=== PATIENT | female | born 1960 | race Caucasian/White ===

== ENCOUNTER → 2016-11-18 | Outpatient (CLI) | payer OTHER ==
[~2016-11-18] MED LIST: CITA40TA4 PO; LISI10TA PO; METF500T5 PO; OMEP20TA14 PO; SIMV20TA2 PO
[2016-11-18 15:45] LABS: ALT/SGPT 33 U/L (12-78); BLOOD UREA NITROGEN 14 mg/dl (7-18); BUN/CREATININE RATIO 14.5 (10-20); CARBON DIOXIDE 28 mmol/L (21-32); CHLORIDE 104 mmol/L (98-107); CREATININE 0.95 mg/dl (0.60-1.20); GLUCOSE 101 mg/dl (70-99); POTASSIUM 4.2 mmol/L (3.5-5.1); SODIUM 139 mmol/L (136-145)
[2016-11-18 15:56] LABS: ALB/GLOB RATIO 0.9 (0.9-2); ALKALINE PHOSPHATASE 72 U/L (45-117); AST/SGOT 19 U/L (15-37)
[2016-11-19 05:47] LABS: ESTIMATED AVERAGE GLUCOSE 120 mg/dl; HA1C FLAG Normal (Normal)
== END | disposition home or self-care (01) ==
LOC: C.LABBC 10:02
PROVIDERS: ATTEND Family Medicine
DX: E11.9 Type 2 diabetes mellitus without complications (principal); I10 Essential (primary) hypertension; G62.9 Polyneuropathy, unspecified

== ENCOUNTER 2017-08-04 08:27 | Day surgery (SDC) | payer OTHER ==
[2017-08-01 14:30] VITALS: BMI 45.0
[~2017-08-04] VITALS: Ht 162.6 cm; Wt 120.5 kg
[~2017-08-04 08:27] MED LIST changes: +CEFAZOLIN 2000MG IV PUSH 10 ML IV SCH; +LACTATED RINGER'S 1000ML 1,000 ML IV SCH
[2017-08-04 09:01] VITALS: BP 144/82; PULSE 83; TEMP 36.4; O2SAT 97; Ht 162.6 cm; Wt 120.5 kg
--- NOTE | 2017-08-04 10:17 | History & Physical Bridge Note ---
H&P Re-Evaluation Bridge Note: I have examined the patient, reviewed the History & Physical and in the interval since the performance of the History & Physical I have noted the following changes of clinical significance: No changes noted
[2017-08-04] MEDS ORDERED: BACITRACIN OINT 15 GM TUBE ONE (12:05)
[2017-08-04] MEDS ORDERED: LIDOCAINE HCL 1% 20 ML VIAL ONE (12:05)
[2017-08-04] MEDS ORDERED: BUPIVACAINE 0.5 % 5 MG/1 ML MPF 30ML VIAL ONE (12:05)
[2017-08-04] MEDS ORDERED: FENTANYL CITRATE INJ 50 MCG/1 ML 2 ML VIAL ONE (12:10)
[2017-08-04] MEDS ORDERED: PROPOFOL IV EMULSION 10 MG/ML 20 ML VIAL IV ONE ×2 (12:10→12:33)
[2017-08-04] MEDS ORDERED: MIDAZOLAM HCL 1 MG/ML 2ML VIAL ONE (12:10)
[2017-08-04] MEDS ORDERED: ONDANSETRON INJ 2 MG/ML 2 ML VIAL ONE (12:34)
[2017-08-04] MEDS ORDERED: PROMETHAZINE HCL INJ 6.25 MG in SODIUM CHLORIDE 0.9% 50ML 50 ML IV PRN (13:30)
[2017-08-04] MEDS ORDERED: ONDANSETRON INJ 2 MG/ML 2 ML VIAL IV PRN (13:30)
[2017-08-04] MEDS ORDERED: EpHEDrine SULFATE INJ 50 MG/ML AMP IV PRN (13:30)
[2017-08-04] MEDS ORDERED: FENTANYL CITRATE INJ 50 MCG/1 ML 2 ML VIAL IV PRN (13:30)
[2017-08-04] MEDS ORDERED: ATROPINE SULFATE 0.1 MG/ML 5ML SYR IV PRN (13:30)
[2017-08-04] MEDS ORDERED: OXYC-57 PO (14:12)
--- NOTE | 2017-08-04 14:14 | Discharge Instructions ---
Discharge Instructions Date of Service Aug 04, 2017. Visit Reason for Visit: Left Breast Cancer Discharge Discharge Diagnosis / Problem: S/P port insertion on right sublavein vein Discharge Goals Goal(s): Decrease discomfort, Improve function Activity Recommendations Activity Limitations: per Instructions/Follow-up section Lifting Limitations: no more than 10 pounds Exercise/Sports Limitations: rest today May Resume Sexual Activity: when tolerated Shower/Bathe: may shower/bathe in 3 days Driving or Machine Use: resume 3 days after discharge Anesthesia . Post Anesthesia Instructions: If you have had General Anesthesia or IV Sedation: * Do not drive today. * Resume driving when surgeon permits. * Do not make important decisions or sign legal documents today. * Call surgeon for: 1. Temperature elevations greater than 101 degrees F. 2. Uncontrollable pain. 3. Excessive bleeding. 4. Persistent nausea and vomiting. 5. Medication intolerance (nausea, vomiting or rash). * For nausea and vomiting use only clear liquids such as: tea, soda, bouillon until nausea subsides, then gradually increase diet as tolerated. * If you have any concerns or questions, call your surgeon's office. If physician is unavailable and it is an emergency, call 911 or go to the nearest emergency room. . Instructions / Follow-Up Instructions / Follow-Up keep the dressing on for 4 days, she can take a shower on 08/08/17, no driving while taking pain medicine, follow up 1 week, Diet Recommendations Recommended Home Diet: resume previous diet Procedures Procedures Performed: A-Port Insertion Pending Studies Studies pending at discharge: no Medical Emergencies . Who to Call and When: Medical Emergencies: If at any time you feel your situation is an emergency, please call 911 immediately. . Non-Emergent Contact Non-Emergency issues call your: Surgeon Call Non-Emergent contact if: you have a fever, temperature is above 100.5, your pain is not controlled, your pain is worsening, wound has increased drainage, wound has increased redness . . "Provider Documentation" section prepared by Thad England. . [place] Drug Monitoring Program Search Results: no issues identified
[2017-08-04] MEDS ORDERED: OXYCODONE/ACETAMINOPHEN 5-325 TAB PO PRN (14:15)
[2017-08-04] MEDS ORDERED: MoRPHine SULFATE 2 MG/ML CARP IV PRN (14:15)
--- NOTE | 2017-08-04 14:17 | Anesthesiology Progress Note ---
Anesthesia Post Op Note Date & Time Aug 04, 2017 at 14:16 Vital Signs Pain Intensity: 0 Vital Signs Past 12 Hours Date Time Temp Pulse Resp B/P (MAP) Pulse Ox O2 Delivery O2 Flow Rate FiO2 08/04/17 14:05 78 16 110/83 95 Room Air 08/04/17 13:55 80 20 124/65 96 Room Air 08/04/17 13:46 36.1 77 16 138/82 97 Room Air 08/04/17 09:01 36.4 83 20 144/82 (102) 97 Room Air Notes Mental Status: alert / awake / arousable, participated in evaluation Pt Amnestic to Procedure: No Nausea / Vomiting: adequately controlled Pain: adequately controlled Airway Patency, RR, SpO2: stable & adequate BP & HR: stable & adequate Hydration State: stable & adequate Anesthetic Complications: no major complications apparent Non distressing recall as discussed preop
--- NOTE | 2017-08-04 14:17 | [facility] Post Operative Brief Note ---
Immediate Operative Summary Operative Date Aug 04, 2017. Pre-Operative Diagnosis breast cancer Post-Operative Diagnosis breast cancer Procedure(s) Performed A-Port Insertion on right sublavein vein Surgeon Dr. England Dermatologist Surgeon(s) surgical sales representative Estimated Blood Loss 10ml Findings patent SVC Fluids (cc crystalloids) 500ml Specimens none per surgeon Drains none Anesthesia sedation + local Complication(s) None Disposition Recovery Room / PACU
[2017-08-04 14:28] VITALS: BP 125/87; PULSE 75; TEMP 36.6; O2SAT 96
--- NOTE | 2017-08-04 14:45 | DIAGNOSTIC IMAGING REPORT ---
CHEST ONE VIEW PORTABLE HISTORY: 57 years-old Female s/p aport insertion status post right-sided [id number]-[id number] catheter placement COMPARISON: Chest radiograph 09/15/2016 TECHNIQUE: AP view of the chest FINDINGS: Cardiac silhouette is mildly enlarged, unchanged. Status post placement of a right subclavian Loexuy-b-Lgem catheter with distal tip terminating in the region of the SVC. No postprocedural pneumothorax identified. No pleural effusion. Mild right hemidiaphragmatic elevation. No focal airspace consolidation or overt pulmonary edema. The bones of the chest appear grossly intact. IMPRESSION: Status post placement of a right subclavian Hujulx-g-Nqwi catheter with distal tip terminating in the region of the SVC. No postprocedural pneumothorax identified. The above report was generated using voice recognition software. It may contain grammatical, syntax or spelling errors. Electronically signed by: Jace Carrillo M.D. 08/04/2017 2:43 PM Dictated Date/Time: 08/04/2017 2:42 PM
[2017-08-04 14:54] VITALS: BP 123/59; PULSE 84; TEMP 36.8; O2SAT 95
[2017-08-04] MEDS ORDERED: SODIUM CHLORIDE 0.9% 1000ML 1,000 ML IV SCH (15:00)
--- NOTE | 2017-08-04 19:42 | OPERATIVE REPORT ---
DATE OF OPERATION: 08/04/2017 PREOPERATIVE DIAGNOSIS: Breast cancer, need of port insertion for chemotherapy. POSTOPERATIVE DIAGNOSIS: Same. PROCEDURE: Insertion of port right subclavian vein. SURGEON: Thad England MD. ANESTHESIA: Conscious sedation plus local. ESTIMATED BLOOD LOSS: About 10 mL. FINDINGS: patent SVC. COMPLICATIONS: None. INDICATIONS FOR PROCEDURE: This is a 57-year-old female who was diagnosed with breast cancer and need port insertion for chemo. We did talk to the patient about the benefit, risk, alternate procedure. I indicated the risks may include but not limited such as bleeding, infection, injury vessel, injury to bowel, dysfunction of catheter, blood clot. The patient understands. She signed informed consent and I answered all questions. DETAILS OF PROCEDURE: We brought the patient to the OR, put the patient in the supine position. The patient received SCD on bilateral legs to prevent DVT and also patient received 2 grams Ancef IV for prophylactic antibiotic. The patient received conscious sedation by the anesthesiology. First we tried the right side of the neck. We tried to locate the right internal jugular venin, because the patient has a very short neck and the patient also has significant obesity, it was difficult to locate the right internal jugular vein. Now we moved onto the right upper chest. We used a local injection of 1% lidocaine mixed with 0.5% Marcaine around the right upper chest, then I used a 15-gauge needle to puncture to region of right subclavian vein easily and passed the wire in and then I made about 3 cm incision around the wire and created a port. Hemostasis was obtained. Then I used the dilator catheter to pass the wire in. At this moment, we used fluoro to monitor the wire and located it in the right atrium. Then we removed the wire and we used dilation and at this moment, we passed the port of catheter through the dilation sheath and then we removed the sheath and we used fluoro again to confirm the port tip and locate the junction between the right atrium towards the superior vena cava. Then we connected the port to the catheter and hemostasis obtained. Then I used 2-0 Prolene to affix the port on the chest wall at 3 o'clock, 7 o'clock, 12 o'clock and then used 2-0 Vicryl to close subcutaneous layer continuous running, 4-0 Vicryl to close the skin continuous running and then I used chemoradiation needle to puncture the port from outside skin, easily blood returned, I injected normal saline with heparin. Then, we put the dressing on. The patient tolerated the procedure well. All instrument, needle and sponge count correct x2 at the end of case. The patient transferred to recovery room in stable condition. After the procedure, I did talk to the patient's family member about the OR finding and procedure we did, they understand. Also, gave them the postop care instructions. I attest to the content of the Intraoperative Record and any orders documented therein. Any exceptions are noted below. KIMD
[2017-08-05] MEDS ORDERED: CEFAZOLIN SOD 2000MG/10 ML IV PUSH IV ONE (06:00)
== END 2017-08-04 15:05 | disposition home or self-care (01) ==
LOC: C.ACU 08:27
PROVIDERS: ATTEND Surgery
DX: Z85.3 Personal history of malignant neoplasm of breast (principal); I10 Essential (primary) hypertension; E78.5 Hyperlipidemia, unspecified; L71.9 Rosacea, unspecified; K21.9 Gastro-esophageal reflux disease without esophagitis; F32.1 Major depressive disorder, single episode, moderate; E11.9 Type 2 diabetes mellitus without complications; Z90.49 Acquired absence of other specified parts of digestive tract; Z90.711 Acquired absence of uterus with remaining cervical stump; Z90.12 Acquired absence of left breast and nipple; Z82.49 Family history of ischemic heart disease and other diseases of the circulatory system; Z79.84 Long term (current) use of oral hypoglycemic drugs; E66.9 Obesity, unspecified; Z68.41 Body mass index [BMI] 40.0-44.9, adult

== ENCOUNTER 2025-02-14 08:52 | Inpatient (IN) ==
--- NOTE | 2025-02-14 09:21 | Emergency Department Note ---
History of Present Illness General Chief complaint: Tachycardia Stated complaint: HEART ISSUES FAST HEARTBEAT,DOC REFF Time Seen by Provider: 02/14/25 09:06 History of Present Illness Maximum Pain Intensity: 5 This is a 64-year-old female with a history of breast cancer, diabetes, hypertension that presents to the emergency department via private vehicle with complaints of "referred by doctor, elevated heart rate". The patient notes about 1 week ago she thought perhaps she had a "cold" noting shortness of breath. She notes that throughout the week this has continued and at rest is essentially asymptomatic but if she attempts to walk any short distances she becomes quite dyspneic. She also notes that when she lays flat she experiences some wheezing. She denies any history of similar. She had a follow-up today for her diabetes management and was referred in by PCP noting tachycardia and dyspnea. The patient denies any chest pain or heaviness. The patient denies any preceding or current infectious symptoms otherwise. No fevers or chills. No nausea or vomiting. She does note that her parents have a cardiac history, which began in their 60s. Home Medications Medication Instructions Recorded Confirmed Type omeprazole 20 mg capsule,delayed 20 mg PO QAM #0 tabs 07/17/16 02/14/25 History release lisinopril 10 mg tablet 10 mg PO HS 04/13/19 02/14/25 History venlafaxine 150 mg tablet,extended 150 mg PO HS 04/13/19 02/14/25 History release 24 hr atorvastatin 20 mg tablet 20 mg PO HS 03/02/20 02/14/25 History metformin 500 mg tablet,extended 1,500 mg PO QAM 02/14/25 02/14/25 History release 24 hr pioglitazone 15 mg tablet 15 mg PO QAM 02/14/25 02/14/25 History Allergies Allergy/AdvReac Type Severity Reaction Status Date / Time codeine AdvReac Mild NAUSEA/VOMI Verified 02/14/25 12:47 TING Past Med/Surg History Problem List Dyspnea on exertion (Acute) Heart failure (Acute) Dyslipidemia, goal LDL below 70 HTN (hypertension) Heart failure, systolic, with acute decompensation Mitral regurgitation Systolic congestive heart failure with reduced left ventricular function, NYHA class 3 UTI (urinary tract infection) (Acute) Pleural effusion (Acute) Tachycardia (Acute) Cancer of left breast, stage 2 (Chronic 05/22/17) Encounter for pre-operative examination Polyp of duodenum History of hysterectomy History of cholecystectomy Medical History (Updated 02/14/25 @ 20:34 by Taran Gomez PA-C) Anxiety and depression History of colon polyps Osteoarthritis Hyperlipidemia HTN (hypertension), benign Pre-diabetes History of breast cancer left--diagnosed 2017--chemo/radiation/sx Surgical History History of anesthesia reaction EGD 04/22/19 [facility] - GAG/COUGH, LOW O2 SAT DURING PROCEDURE. PROCEDURE TERMINATED. History of carpal tunnel surgery of right wrist History of arthroscopy of right knee History of colonoscopy History of esophagogastroduodenoscopy (EGD) History of left breast biopsy malignant History of lumpectomy of left breast History of wisdom tooth extraction Family History Father Family history of esophageal cancer Other No family history of adverse response to anesthesia Social History Smoking Status: Never smoker Second Hand Exposure: No; Do You Dip or Chew Tobacco: No; Hx Alcohol Use: Yes Alcohol type: beer Hx Substance Use: No Preferred Language: Kazakh Communication Ability: Effective Financial Reporting Director Required: No Beliefs That Will Affect Care: None Current Living Situation: Alone Other Information That Helps Us Care for You: No Feels Safe at Home: Yes Safety Concerns: Feels Safe At This Time Assistive Devices: None Review of Systems A total of 10 systems reviewed and were otherwise negative Physical Exam Vital Signs Vital Signs - 24 hr 02/14/25 08:57 02/14/25 09:12 02/14/25 09:14 Temperature 36.7 C Temperature Source Oral Pulse Rate 122 H 117 H 118 H Pulse Rate [Apical] Respiratory Rate 26 H 25 H Respiratory Effort / Characteristics Respiratory Depth Blood Pressure 146/80 H Blood Pressure [Right Arm] Blood Pressure Mean 102 Blood Pressure Mean [Right Arm] Blood Pressure Position Sitting Pulse Oximetry 97 Oxygen Delivery Method Room Air Sepsis Recent Fever Within 48 Hours No Sepsis New/Unexplained Change in Mental Status No Sepsis Action Taken by Nursing No Action Required 02/14/25 09:14 02/14/25 09:14 02/14/25 09:14 Temperature Temperature Source Pulse Rate Pulse Rate [Apical] Respiratory Rate Respiratory Effort / Characteristics Respiratory Depth Blood Pressure 136/85 136/85 136/85 Blood Pressure [Right Arm] Blood Pressure Mean 100 100 100 Blood Pressure Mean [Right Arm] Blood Pressure Position Pulse Oximetry Oxygen Delivery Method Sepsis Recent Fever Within 48 Hours Sepsis New/Unexplained Change in Mental Status Sepsis Action Taken by Nursing 02/14/25 09:17 02/14/25 09:20 02/14/25 09:27 Temperature Temperature Source Pulse Rate 114 H Pulse Rate [Apical] Respiratory Rate 21 Respiratory Effort / Characteristics Respiratory Depth Blood Pressure Blood Pressure [Right Arm] Blood Pressure Mean Blood Pressure Mean [Right Arm] Blood Pressure Position Pulse Oximetry 97 97 Oxygen Delivery Method Room Air Room Air Sepsis Recent Fever Within 48 Hours Sepsis New/Unexplained Change in Mental Status Sepsis Action Taken by Nursing 02/14/25 09:30 02/14/25 09:53 02/14/25 09:53 Temperature Temperature Source Pulse Rate 112 H Pulse Rate [Apical] Respiratory Rate 15 Respiratory Effort / Characteristics Respiratory Depth Blood Pressure 129/78 129/78 Blood Pressure [Right Arm] Blood Pressure Mean 92 92 Blood Pressure Mean [Right Arm] Blood Pressure Position Pulse Oximetry Oxygen Delivery Method Sepsis Recent Fever Within 48 Hours Sepsis New/Unexplained Change in Mental Status Sepsis Action Taken by Nursing 02/14/25 09:54 02/14/25 10:00 02/14/25 10:00 Temperature Temperature Source Pulse Rate 112 H Pulse Rate [Apical] Respiratory Rate 17 Respiratory Effort / Characteristics Respiratory Depth Blood Pressure 135/80 135/80 Blood Pressure [Right Arm] Blood Pressure Mean 89 89 Blood Pressure Mean [Right Arm] Blood Pressure Position Pulse Oximetry 97 Oxygen Delivery Method Sepsis Recent Fever Within 48 Hours Sepsis New/Unexplained Change in Mental Status Sepsis Action Taken by Nursing 02/14/25 10:06 02/14/25 10:12 02/14/25 10:30 Temperature Temperature Source Pulse Rate 108 H 108 H Pulse Rate [Apical] Respiratory Rate 21 19 Respiratory Effort / Characteristics Respiratory Depth Blood Pressure 146/90 H Blood Pressure [Right Arm] Blood Pressure Mean 106 Blood Pressure Mean [Right Arm] Blood Pressure Position Pulse Oximetry 96 Oxygen Delivery Method Sepsis Recent Fever Within 48 Hours Sepsis New/Unexplained Change in Mental Status Sepsis Action Taken by Nursing 02/14/25 10:39 02/14/25 10:42 02/14/25 10:54 Temperature Temperature Source Pulse Rate 115 H 117 H 108 H Pulse Rate [Apical] Respiratory Rate 24 19 19 Respiratory Effort / Characteristics Respiratory Depth Blood Pressure Blood Pressure [Right Arm] Blood Pressure Mean Blood Pressure Mean [Right Arm] Blood Pressure Position Pulse Oximetry 98 98 98 Oxygen Delivery Method Sepsis Recent Fever Within 48 Hours Sepsis New/Unexplained Change in Mental Status Sepsis Action Taken by Nursing 02/14/25 10:57 02/14/25 11:00 02/14/25 11:09 Temperature Temperature Source Pulse Rate 110 H 109 H Pulse Rate [Apical] Respiratory Rate 20 Respiratory Effort / Characteristics Respiratory Depth Blood Pressure 144/90 H Blood Pressure [Right Arm] Blood Pressure Mean 111 Blood Pressure Mean [Right Arm] Blood Pressure Position Pulse Oximetry 98 Oxygen Delivery Method Sepsis Recent Fever Within 48 Hours Sepsis New/Unexplained Change in Mental Status Sepsis Action Taken by Nursing 02/14/25 12:00 Temperature Temperature Source Pulse Rate Pulse Rate [Apical] 117 H Respiratory Rate 18 Respiratory Effort / Characteristics Non-Labored Spontaneous Respiratory Depth Normal Blood Pressure Blood Pressure [Right Arm] 134/102 H Blood Pressure Mean Blood Pressure Mean [Right Arm] 112 Blood Pressure Position Pulse Oximetry 98 Oxygen Delivery Method Room Air Sepsis Recent Fever Within 48 Hours Sepsis New/Unexplained Change in Mental Status Sepsis Action Taken by Nursing VITAL SIGNS - Vital signs and nursing notes were reviewed. Tachypneic, tachycardic, otherwise stable and afebrile. GENERAL -64-year-old female appearing her stated age who is in no acute distress. Communicates well with provider and answers questions appropriately. SKIN - Without rashes. No meningeal or petechial rash. HEAD - NC/AT. EYES - PERRL with EOMI bilaterally. Sclera anicteric. EARS - No deformities of external structures noted on gross examination bilaterally. NOSE - Midline and without cyanosis. No epistaxis or purulent drainage noted. MOUTH/OROPHARYNX - Without perioral cyanosis. NECK - Neck with FROM. No nuchal rigidity. LUNGS - CTA CARDIAC - tachycardic, no definite murmur ABDOMEN - Abdominal contour normal without pulsations or visible masses. BS normoactive all four quadrants. No tenderness, palpable masses, hepatosplenomegaly, or ascites noted. EXTREMITIES - No clubbing or peripheral cyanosis. +5/5 strength noted in UE/LE bilaterally. NEUROLOGIC - Cranial nerves II through XII grossly intact. PSYCH - Alert, oriented and pleasant on exam. Course Administered Medications Atorvastatin Calcium (Atorvastatin 20 Mg Tab) 20 mg PO HS JANETTE Stop: 03/16/25 20:59 Last Admin: 02/14/25 20:08 Dose: 20 mg Documented By: ANKUSH Enoxaparin Sodium (Enoxaparin Inj 60 Mg/0.6 Ml Syr) 60 mg SQ Q12H JANETTE Stop: 03/16/25 15:59 Last Admin: 02/14/25 15:56 Dose: 60 mg Documented By: CARMELO Insulin Aspart (Insulin Aspart Per Unit Charge) 0 units SC ACHS JANETTE Stop: 03/16/25 16:29 Last Admin: 02/14/25 15:50 Dose: 3 units Documented By: CARMELO Co-signed By: CARMEN Venlafaxine HCl (Venlafaxine Hcl Xr 150 Mg Capxr) 150 mg PO JANETTE Stop: 03/16/25 20:59 Last Admin: 02/14/25 20:08 Dose: 150 mg Documented By: ANKUSH Discontinued Medications Furosemide (Furosemide 40 Mg/4 Ml Vial) 40 mg IV ONE ONE Stop: 02/14/25 12:19 Last Admin: 02/14/25 12:58 Dose: 40 mg Documented By: LORIE Magnesium Sulfate/Dextrose (Magnesium Sulfate / D5w) 1 gm in 100 mls @ 100 mls/hr IV NOW STA Stop: 02/14/25 12:05 Last Infusion: 02/14/25 13:01 Dose: Infused Documented By: Admin: 02/14/25 11:33 Dose: 100 mls/hr Documented By: LORIE Ceftriaxone Sodium (Rocephin) 2,000 mg in 50 mls @ 100 mls/hr IV NOW STA Stop: 02/14/25 12:47 Last Infusion: 02/14/25 13:55 Dose: Infused Documented By: Admin: 02/14/25 12:58 Dose: 100 mls/hr Documented By: LORIE Magnesium Sulfate/Dextrose (Magnesium Sulfate / D5w) 1 gm in 100 mls @ 50 mls/hr IV Q2H JANETTE Stop: 02/14/25 18:49 Last Infusion: 02/14/25 19:42 Dose: Infused Documented By: Admin: 02/14/25 17:42 Dose: 50 mls/hr Documented By: Infusion: 02/14/25 17:42 Dose: Infused Documented By: Admin: 02/14/25 15:42 Dose: 50 mls/hr Documented By: CARMELO Ioversol (Optiray 320 125ml) 119 ml IV ONCE ONE Stop: 02/14/25 11:25 Last Admin: 02/14/25 11:24 Dose: 119 ml Documented By: LISBETH Metoprolol Tartrate (Metoprolol Tartrate 1 Mg/Ml Vial) 5 mg IV BID STA Stop: 02/14/25 13:17 Last Admin: 02/14/25 13:24 Dose: 5 mg Documented By: LORIE Potassium Chloride (Potassium Chloride Crtab 20 Meq Tabcr) 20 meq PO NOW STA Stop: 02/14/25 13:17 Last Admin: 02/14/25 13:24 Dose: 20 meq Documented By: LORIE Medical Decision Making Laboratory Data 02/14/25 09:42 02/14/25 11:06 Lab Results 02/14/25 02/14/25 02/14/25 Range/Units 09:42 11:06 11:30 WBC 5.22 (4.8-10.8) K/ul RBC 4.13 L (4.20-5.40) M/uL Hgb 12.1 (12.0-16.0) g/dl Hct 36.4 L (37.0-47.0) % MCV 88.1 (80.0-100.0) fL MCH 29.3 (25.0-34.0) pg MCHC 33.2 (32.0-36.0) g/dL RDW Std Deviation 43.4 (36.4-46.3) fL RDW Coeff of Dev 13.5 (11.5-14.5) % Plt Count 223 (130-400) K/uL MPV 10.5 (9.4-12.4) fL Immature Gran % (Auto) 0.4 % Neut % (Auto) 67.4 % Lymph % (Auto) 19.9 % [place] % (Auto) 9.6 % Eos % (Auto) 1.9 % Baso % (Auto) 0.8 % Neut # (Auto) 3.52 (1.40-6.50) K/uL Lymph # (Auto) 1.04 L (1.20-3.40) K/uL [place] # (Auto) 0.50 (0.11-0.59) K/uL Eos # (Auto) 0.10 (0.00-0.50) K/uL Baso # (Auto) 0.04 (0.00-0.20) K/uL Immature Gran # (Auto) 0.02 (0.01-0.20) K/uL PT 11.0 (9.0-12.0) Seconds INR 1.0 (0.9-1.1) APTT 26 (21-31) Seconds PTT Ratio 1.0 Sodium 138 (136-145) mmol/L Potassium TNP 4.1 Chloride 106 (98-107) mmol/L Carbon Dioxide 23 (21-32) mmol/L Anion Gap 9 (3-11) BUN 13 (6-23) mg/dl Creatinine 0.84 (0.6-1.2) mg/dl Est Cr Clr Drug Dosing 86.3 ml/min eGFR 78.52 BUN/Creatinine Ratio 15.5 (10-20) Glucose 151 H (70-99(Fasting)) mg/dl Calcium 8.9 (8.6-10.3) mg/dl Magnesium 1.5 L (1.7-2.4) mg/dl Total Bilirubin 0.6 (0.2-1.0) mg/dl AST TNP 16 ALT 12 (7-52) U/L Alkaline Phosphatase 49 (34-104) U/L Troponin I High Sens 21.7 H 26.9 H (0-14) pg/ml B-Natriuretic Peptide 324 H (0-100) pg/ml Total Protein 6.6 (6.0-8.3) gm/dl Albumin 3.6 (3.4-5.0) gm/dl Globulin 3.0 (2.5-4.0) gm/dl Albumin/Globulin Ratio 1.2 (0.9-2) Lipase 19 (11-82) U/L Procalcitonin 0.05 (0-0.5) ng/ml TSH 3.562 (0.300-4.500) uIu/ml Urine Color Yellow Urine Appearance Cloudy A (Clear) Urine pH 5.5 (4.5-7.5) Ur Specific [place] 1.030 (1.000-1.030) Urine Protein Trace H (Negative) Urine Glucose (UA) Negative (Negative) Urine Ketones Trace H (Negative) Urine Blood Negative (Negative) Urine Nitrite Positive A (Negative) Urine Bilirubin Negative (Negative) Urine Urobilinogen Negative (Negative) Ur Leukocyte Esterase 2+ H (Negative) Urine WBC (Auto) >50 H (0-5) /hpf Urine RBC (Auto) 0-2 (0-2) /hpf U Hyaline Cast (Auto) 0-2 (0-2) /lpf U Epithel Cells (Auto) 6-10 H (0-2) /hpf Urine Bacteria (Auto) 3+ H (None Seen) Urine Comment Lyme Disease Screen Negative (Negative) Imaging Data Radiologist's Impression: Chest X-Ray 02/14/25 09:11 XR chest 1V portable CLINICAL HISTORY: tachycardiac COMPARISON STUDY: 08/04/2017 FINDINGS: Heart size and pulmonary vasculature are normal. Inspiration is shallow. There is interval mild stranding opacity in the lung bases. No other consolidation or pleural effusion. No pneumothorax. IMPRESSION: Atelectasis versus early pneumonia in the lung bases. ACT 112: Negative or not required by law. Electronically signed by: Blu Mcdonald M.D. 02/14/2025 9:24 AM Chest CTA 02/14/25 10:37 CT angio chest PE protocol CT DOSE: 889.38 mGy.cm HISTORY: 64 years-old Female with dyspnea, tachycardia. Acute shortness of breath with tachycardia TECHNIQUE: Multiple CTA images of the chest were obtained after the intravenous administration of 119 ml Optiray. Coronal and sagittal MIPS were obtained from the axial data set and were submitted for review. All measurements were obtained according to NASCET criteria. A dose lowering technique was utilized adhering to the principles of ALARA. COMPARISON: Chest x-ray of same day FINDINGS: CTA: Mild cardiomegaly. No pericardial effusion. Minimal coronary artery calcifications. No thoracic aortic aneurysm. No pulmonary emboli are identified. Study is mildly degraded by respiratory motion artifact. The subsegmental branches are not well-seen. CT CHEST: No dominant thyroid nodule or lymphadenopathy. Small to moderate pleural effusions. No pneumothorax. Mild intralobular septal thickening with dependent subsegmental bibasilar consolidation. No suspicious pulmonary nodules or masses are seen. Central airways are patent. 6 mm possible ground glass nodule of the left upper lobe on image 137. Hepatomegaly with hepatic steatosis. No acute upper abdominal abnormality. No acute fracture or destructive bone lesion. IMPRESSION: 1. No pulmonary emboli identified. 2. Cardiomegaly with interstitial pulmonary edema. 3. [id number] layering pleural effusions with dependent bibasilar consolidation suggestive of atelectasis. ACT 112: Negative or not required by law. The above report was generated using voice recognition software. It may contain grammatical, syntax or spelling errors. Electronically signed by: Philip Carrillo M.D. 02/14/2025 11:39 AM MDM Narrative Patient was seen and evaluated as above in room B10. Review was performed of nursing notes and vital signs. I did review pertinent previous visits and patient history. After obtaining a thorough history and physical examination the above work up was performed. Patient presents to us today referred by PCP for tachycardia and dyspnea. Patient notes exertional dyspnea x 1 week. She is tachycardic on arrival here today and tachypneic. She is speaking in full sentences. I did review the patient's external medical record as made available by our pharmacy informatics manager. This included today's PCP visit as well as echocardiogram dated 11-16-2024. Per review of patient's echocardiogram dated 11-16-2024 EF 50%. EKG performed today per my interpretation reveals sinus tachycardia at a rate of 128 bpm. QTc 443. QRS 82. No ST elevation on this rhythm tracing. Labs reviewed no leukocytosis or concerning anemia. Coags normal. No evidence of kidney or liver failure. Troponin and BNP are elevated. No chest pain. Procalcitonin within normal range. TSH reveals euthyroid state. Urinalysis reveals concern for UTI. Lyme testing negative. Chest x-ray atelectasis versus pneumonia per my interpretation as well as radiologist above. CT of the chest was performed with results as above. No PE. Cardiomegaly with interstitial pulmonary edema. Pleural effusions noted. The patient will require hospitalization at this time. I discussed the case with the hospitalist service. I did order IV ceftriaxone for coverage of the suspected UTI as well as IV Lasix during the suspected volume overload. It is felt that the benefit of the medication outweighed risk. Please refer to further documentation regarding her stay. GCS: 15 In the evaluation and treatment of this patient the following differential diagnoses were entertained: TX, PE, pneumonia, CHF, sepsis, among others Impression & Plan Heart failure, Tachycardia, Pleural effusion, UTI (urinary tract infection), Dyspnea on exertion Discharge Plan Visit Data Chief Complaint: Tachycardia Stated Complaint: HEART ISSUES FAST HEARTBEAT,DOC REFF ED Provider: Moses Carreno ED Midlevel Provider: Taran Gomez Discharge Problem: Heart failure, Tachycardia, Pleural effusion, UTI (urinary tract infection), Dyspnea on exertion Patient Disposition: Admitted As Inpatient Condition: Fair Discharge Instructions Interventions: ED Discharge Assessment Last Done: 02/14/25 13:53
--- NOTE | 2025-02-14 09:25 | XRay Report ---
XR chest 1V portable CLINICAL HISTORY: tachycardiac COMPARISON STUDY: 08/04/2017 FINDINGS: Heart size and pulmonary vasculature are normal. Inspiration is shallow. There is interval mild stranding opacity in the lung bases. No other consolidation or pleural effusion. No pneumothorax . IMPRESSION: Atelectasis versus early pneumonia in the lung bases. ACT 112: Negative or not required by law. Electronically signed by: Blu Mcdonald M.D. 02/14/2025 9:24 AM
[2025-02-14 10:07] LABS: Hematocrit (blood only) 36.4 % (37.0-47.0); Hemoglobin 12.1 g/dl (12.0-16.0); Immature Granulocytes # (auto) 0.02 K/uL (0.01-0.20); Immature Granulocytes % (auto) 0.4 %; Mean Corpuscular Hemoglobin 29.3 pg (25.0-34.0); Mean Corpuscular Volume 88.1 fL (80.0-100.0); Platelet Count 223 K/uL (130-400); RDW Standard Deviation 43.4 fL (36.4-46.3); Red Blood Count 4.13 M/uL (4.20-5.40); White Blood Count 5.22 K/ul (4.8-10.8)
[2025-02-14 10:33] LABS: Procalcitonin 0.05 ng/ml (0-0.5)
[2025-02-14 10:34] LABS: Alanine Aminotransferase 12 U/L (7-52); Albumin Globulin Ratio 1.2 (0.9-2); Alkaline Phosphatase 49 U/L (34-104); Anion Gap 9 (3-11); Bilirubin,Total 0.6 mg/dl (0.2-1.0); Blood Urea Nitrogen 13 mg/dl (6-23); Calcium 8.9 mg/dl (8.6-10.3); Carbon Dioxide 23 mmol/L (21-32); Chloride 106 mmol/L (98-107); Creatinine Clr Calc Pharmacy 86.3 ml/min; Globulin 3.0 gm/dl (2.5-4.0); Glucose 151 mg/dl (70-99(Fasting)); INR 1.0 (0.9-1.1); Lipase 19 U/L (11-82); Magnesium 1.5 mg/dl (1.7-2.4); Partial Thromboplastin Time 26 Seconds (21-31); Prothrombin Time 11.0 Seconds (9.0-12.0); Sodium 138 mmol/L (136-145); Total Protein 6.6 gm/dl (6.0-8.3)
[2025-02-14 10:41] LABS: Thyroid Stimulating Hormone 3.562 uIu/ml (0.300-4.500)
[2025-02-14 10:56] LABS: Lyme Screen Rflx Confirmation Negative (Negative)
[2025-02-14] MEDS: OPTIRAY 320 125ml IV ONE (11:24)
[2025-02-14] MEDS: MAGNESIUM SULFATE / D5W 1 GM/100 ML BAG IV STA (11:33)
[2025-02-14 11:36] LABS: Potassium 4.1 mmol/L (3.5-5.1)
--- NOTE | 2025-02-14 11:41 | CT Scan Report ---
CT angio chest PE protocol CT DOSE: 889.38 mGy.cm HISTORY: 64 years-old Female with dyspnea, tachycardia. Acute shortness of breath with tachycardia TECHNIQUE: Multiple CTA images of the chest were obtained after the intravenous administration of 119 ml Optiray. Coronal and sagittal MIPS were obtained from the axial data set and were submitted for review. All measurements were obtained according to NASCET criteria. A dose lowering technique was u tilized adhering to the principles of ALARA. COMPARISON: Chest x-ray of same day FINDINGS: CTA: Mild cardiomegaly. No pericardial effusion. Minimal coronary artery calcifications. No thoracic aorti c aneurysm. No pulmonary emboli are identified. Study is mildly degraded by respiratory motion artifa ct. The subsegmental branches are not well-seen. CT CHEST: No dominant thyroid nodule or lymphadenopathy. Small to moderate pleural effusions. No pneumothorax. Mild intralobular septal thickening with dependent subsegmental bibasilar consolidation. No suspiciou s pulmonary nodules or masses are seen. Central airways are patent. 6 mm possible ground glass nodule of the left upper lobe on image 137. Hepatomegaly with hepatic steatosis. No acute upper abdominal abnormality. No acute fracture or destr uctive bone lesion. IMPRESSION: 1. No pulmonary emboli identified. 2. Cardiomegaly with interstitial pulmonary edema. 3. [id number] layering pleural effusions with dependent bibasilar consolidation suggestive of atelectasis. ACT 112: Negative or not required by law. The above report was generated using voice recognition software. It may contain grammatical, syntax o r spelling errors. Electronically signed by: Philip Carrillo M.D. 02/14/2025 11:39 AM
[2025-02-14 11:46] LABS: Appearance Urine Cloudy (Clear); Bacteria Urine Automated 3+ (None Seen); Cast Urine Automated 0-2 /lpf (0-2); Glucose Urine UA Negative (Negative); RBC Urine Automated 0-2 /hpf (0-2); WBC Urine Automated >50 /hpf (0-5)
[2025-02-14] MEDS: cefTRIAXone SODIUM 2,000 MG/50 ML BAG IV STA (12:58)
[2025-02-14] MEDS: FUROSEMIDE 40 MG/4 ML VIAL IV ONE (12:58)
[2025-02-14] MEDS: POTASSIUM CHLORIDE CRTAB 20 MEQ TABCR PO STA (13:24)
[2025-02-14] MEDS: METOPROLOL TARTRATE 1 MG/ML VIAL IV STA (13:24)
--- NOTE | 2025-02-14 13:34 | History & Physical Report ---
Date of Service February 14, 2025 Assessment & Plan (1) Tachycardia: Plan: Patient is a 64 year old F with a past medical history of non-insulin dependent DM 2, HTN, HLD, Breast CA (2017) s/p chemo/radiation with recent Tamoxifen wean, presenting with tachycardia, dyspnea, cough, congestion. Chest congestion, dry cough mostly at night, dyspnea with mild exertion x 1 week. No treatment at home and symptoms remained the same. She went to her PCP this morning for routine f/u and sent here due to her symptoms with mild lower leg edema and a long-standing history of tachycardia seen outpatient. Tachycardia #R/O new-onset CHF in setting of pulmonary congestion with tachycardia and hypertension * Admit to [facility] for further management and workup of tachycardia * Tele monitoring * Metoprolol 5 mg x 1 given in ED--> start Metoprolol 12.5 mg BID with first dose to start this evening * Routine Echo ordered for r/o CHF in the setting of long-standing tachycardia now with cough, dyspnea, LE swelling * Cardiology consult ordered * Daily EKG * Trop initially elevated 21.7, increased to 26.9 post-2H; trend Q6H for now * BNP 324 on admit * Lasix 40 mg x 1 in Ed- continue Lasix 40 mg Daily * KCL 20 mg given x 1 in ED following diuretic therapy; Potassium 4.1 today * Continue home lisinopril * Possible undiagnosed LINDA- will monitor nocturnal pulse ox for now UTI: * No urinary symptoms at home; history of UTIs with oral diabetes meds * UA with positive for UTI, culture pending * Continue Rochephin Q24H * Probiotic daily while on antibiotics Hypomagnesemia: * Mag 1.5--> replaced with 1gm in ED; additional 2 gm ordered to give * Trend with AM labs * Tele monitoring Prediabetes * Non-insulin DM with recent A1C 7.7 OP * Holding home Metformin and Actos * SSI while inpatient * Accucheck ACHS Hyperlipidemia: * Continue home statin History of Breast CA 2017 s/p chemo and radiation: * Currently in remission * Managed on Tamoxifen x 7 years and weaned off treatment recently DVT Ppx: Lovenox Code status: DNR/DNI PCP: Dr. Dong Dispo: Admit to [facility] for further workup Patient seen in collaboration with Dr. Mckeon. Please see addendum.I spent a total of 70 minutes coordinating, documenting and providing care for this patient excluding time spent in the performance of separately billed services or time spent by another provider/QHP. (2) Pleural effusion: (3) HTN (hypertension), benign: (4) UTI (urinary tract infection): (5) Pre-diabetes: (6) Hyperlipidemia: (7) History of breast cancer: History of Present Illness Primary Care Provider: Tariq Dong MD Patient is a 64 year old F with a past medical history of non-insulin dependent DM 2, HTN, HLD, Breast CA (2017) s/p chemo/radiation with recent Tamoxifen wean, presenting with tachycardia, dyspnea, cough, congestion. Chest congestion, dry cough mostly at night, dyspnea with mild exertion x 1 week. No treatment at home and symptoms remained the same. She went to her PCP this morning for routine f/u and sent here due to her symptoms with mild lower leg edema and a long-standing history of tachycardia seen outpatient. Denies fever, chills, weight loss, weakness, headache, cognitive changes, vision/hearing changes, chest pain, difficulty breathing, urinary concerns, N/V/D, joint swelling/pain, ambulation difficulty, skin rashes, lesions, bleeding, bruising. In the emergency department, patient had elevated blood pressure 140's / 90-110, HR 108-127. EKG showed sinus tachycardia with vent rate 128 bpm, QTc 44. No signs of sepsis. Chest Xray showed atelectasis versus early pneumonia in the lung bases. Chest CTA showed no pulmonary emboli identified; Cardiomegaly with interstitial pulmonary edema; [id number] layering pleural effusions with dependent bibasilar consolidation suggestive of atelectasis. Lasix 40mg x 1 given in ED for pleural effusions and LE edema. BNP elev at 324. Trop 21.7 initially and inc to 26.9 2 hours post 2 hours. Urine + UTI with nitrites, leuk esterase. NO urinary symptoms and infection found incidentally with workup. Ceftriaxone x 1 given for UTI. Urine culture pending. Echo ordered with routine Cardiology consult. KCL given x 1 in ED s/p diuretic treatment. Metoprolol Tartrate given x 1 in ED for tachycardia. As per external chart review, patient was seen by PCP today and on 10/22/24. As per visit record, patient has been tachycardic for several months outpatient. TSH normal. Echo was completed on 11/16 showing LVEF 50% with no evidence of significant valvular disease. No followup with Cardiology at that time. Labs unremarkable with no signs of anemia OP. History obtained primarily from the patient and via hospitalization record. [facility]. Allergies Allergy/AdvReac Type Severity Reaction Status Date / Time codeine AdvReac Mild NAUSEA/VOMI Verified 02/14/25 12:47 TING Home Medications Medication Instructions Recorded Confirmed Type omeprazole 20 mg capsule,delayed 20 mg PO QAM #0 tabs 07/17/16 02/14/25 History release lisinopril 10 mg tablet 10 mg PO HS 04/13/19 02/14/25 History venlafaxine 150 mg tablet,extended 150 mg PO HS 04/13/19 02/14/25 History release 24 hr atorvastatin 20 mg tablet 20 mg PO HS 03/02/20 02/14/25 History metformin 500 mg tablet,extended 1,500 mg PO QAM 02/14/25 02/14/25 History release 24 hr pioglitazone 15 mg tablet 15 mg PO QAM 02/14/25 02/14/25 History Past Med/Surg History Problem List Dyslipidemia, goal LDL below 70 HTN (hypertension) Heart failure, systolic, with acute decompensation Mitral regurgitation Systolic congestive heart failure with reduced left ventricular function, NYHA class 3 UTI (urinary tract infection) Pleural effusion Tachycardia Cancer of left breast, stage 2 (Chronic 05/22/17) Encounter for pre-operative examination Polyp of duodenum History of hysterectomy History of cholecystectomy Medical History (Updated 02/14/25 @ 16:06 by Sami Rodney) Anxiety and depression History of colon polyps Osteoarthritis Hyperlipidemia HTN (hypertension), benign Pre-diabetes History of breast cancer left--diagnosed 2017--chemo/radiation/sx Surgical History History of anesthesia reaction EGD 04/22/19 [facility] - GAG/COUGH, LOW O2 SAT DURING PROCEDURE. PROCEDURE TERMINATED. History of carpal tunnel surgery of right wrist History of arthroscopy of right knee History of colonoscopy History of esophagogastroduodenoscopy (EGD) History of left breast biopsy malignant History of lumpectomy of left breast History of wisdom tooth extraction Family History Father Family history of esophageal cancer Other No family history of adverse response to anesthesia Social History Smoking Status: Never smoker Second Hand Exposure: No; Do You Dip or Chew Tobacco: No; Hx Alcohol Use: Yes Alcohol type: beer Hx Substance Use: No Preferred Language: [place] Communication Ability: Effective Regional Branch Manager Required: No Beliefs That Will Affect Care: None Current Living Situation: Alone Other Information That Helps Us Care for You: No Feels Safe at Home: Yes Safety Concerns: Feels Safe At This Time Assistive Devices: None Review of Systems Review of Systems: All systems reviewed & are unremarkable except as noted in HPI & below Physical Exam Physical Exam: VITALS: Reviewed. WEIGHT/BMI reviewed. GEN: Healthy appearing, well-developed, NAD. PSYCH: Good Judgment. AOx3. Normal memory, mood, and affect. HEENT -Head: NC/AT; -Eyes: PERRL, EOMI. No discharge or redn ess; -Ears: External ears are normal. -Nose: Normal nares. -Mouth and throat: MMM. Normal gums, muc linda, palate,. Good dentition. NECK: Supple, with no masses. CV: Tachycardia with regular rhythm, +1 pitting edema RLE, warm and well perfused LUNGS: Diminshed to RLL, otherwise clear, no active coughing ABD: Soft, NT/ND, NBS, no masses or organomegaly. : N/A SKIN: Warm, well perfused. No skin rashes or abnormal lesions. MSK: No deformities, Normal gait. EXT: No clubbing, cyanosis, or edema. NEURO: Ambulating with no limitations. Normal muscle strength and tone. No focal deficits. Results & Data Results & Data Vital Signs (Past 12 Hours) Vital Signs Temp Pulse Pulse Resp BP BP Pulse Ox 02/14/25 13:27 117 H 02/14/25 13:25 127 H 18 142/88 H 97 02/14/25 13:24 127 H 142/88 H 02/14/25 12:00 117 H 18 134/102 H 98 02/14/25 11:09 109 H 02/14/25 11:00 144/90 H 02/14/25 10:57 110 H 20 98 02/14/25 10:54 108 H 19 98 02/14/25 10:42 117 H 19 98 02/14/25 10:39 115 H 24 98 02/14/25 10:30 146/90 H 02/14/25 10:12 108 H 19 02/14/25 10:06 108 H 21 96 02/14/25 10:00 135/80 02/14/25 10:00 135/80 02/14/25 09:54 112 H 17 97 02/14/25 09:53 129/78 02/14/25 09:53 129/78 02/14/25 09:30 112 H 15 02/14/25 09:27 114 H 21 02/14/25 09:20 97 02/14/25 09:17 97 02/14/25 09:14 136/85 02/14/25 09:14 136/85 02/14/25 09:14 136/85 02/14/25 09:14 118 H 25 H 02/14/25 09:12 117 H 02/14/25 08:57 36.7 C 122 H 26 H 146/80 H 97 O2 Del Method 02/14/25 13:27 02/14/25 13:25 Room Air 02/14/25 13:24 02/14/25 12:00 Room Air 02/14/25 11:09 02/14/25 11:00 02/14/25 10:57 02/14/25 10:54 02/14/25 10:42 02/14/25 10:39 02/14/25 10:30 02/14/25 10:12 02/14/25 10:06 02/14/25 10:00 02/14/25 10:00 02/14/25 09:54 02/14/25 09:53 02/14/25 09:53 02/14/25 09:30 02/14/25 09:27 02/14/25 09:20 Room Air 02/14/25 09:17 Room Air 02/14/25 09:14 02/14/25 09:14 02/14/25 09:14 02/14/25 09:14 02/14/25 09:12 02/14/25 08:57 Room Air Laboratory Results Short CBC 02/14/25 Range/Units 09:42 WBC 5.22 (4.8-10.8) K/ul Hgb 12.1 (12.0-16.0) g/dl Hct 36.4 L (37.0-47.0) % Plt Count 223 (130-400) K/uL BMP 02/14/25 02/14/25 09:42 11:06 Sodium 138 Potassium TNP 4.1 Chloride 106 Carbon Dioxide 23 BUN 13 Creatinine 0.84 Glucose 151 H Calcium 8.9 Liver Function 02/14/25 02/14/25 Range/Units 09:42 11:06 Total Bilirubin 0.6 (0.2-1.0) mg/dl AST TNP 16 ALT 12 (7-52) U/L Alkaline Phosphatase 49 (34-104) U/L Albumin 3.6 (3.4-5.0) gm/dl Urine 02/14/25 Range/Units 11:30 Urine Color Yellow Urine Appearance Cloudy A (Clear) Urine pH 5.5 (4.5-7.5) Ur Specific [place] 1.030 (1.000-1.030) Urine Protein Trace H (Negative) Urine Glucose (UA) Negative (Negative) Diagnostic Findings Chest X-Ray 02/14/25 09:11 XR chest 1V portable CLINICAL HISTORY: tachycardiac COMPARISON STUDY: 08/04/2017 FINDINGS: Heart size and pulmonary vasculature are normal. Inspiration is shallow. There is interval mild stranding opacity in the lung bases. No other consolidation or pleural effusion. No pneumothorax. IMPRESSION: Atelectasis versus early pneumonia in the lung bases. ACT 112: Negative or not required by law. Electronically signed by: Blu Mcdonald M.D. 02/14/2025 9:24 AM Chest CTA 02/14/25 10:37 CT angio chest PE protocol CT DOSE: 889.38 mGy.cm HISTORY: 64 years-old Female with dyspnea, tachycardia. Acute shortness of breath with tachycardia TECHNIQUE: Multiple CTA images of the chest were obtained after the intravenous administration of 119 ml Optiray. Coronal and sagittal MIPS were obtained from the axial data set and were submitted for review. All measurements were obtained according to NASCET criteria. A dose lowering technique was utilized adhering to the principles of ALARA. COMPARISON: Chest x-ray of same day FINDINGS: CTA: Mild cardiomegaly. No pericardial effusion. Minimal coronary artery calcifications. No thoracic aortic aneurysm. No pulmonary emboli are identified. Study is mildly degraded by respiratory motion artifact. The subsegmental branches are not well-seen. CT CHEST: No dominant thyroid nodule or lymphadenopathy. Small to moderate pleural effusions. No pneumothorax. Mild intralobular septal thickening with dependent subsegmental bibasilar consolidation. No suspicious pulmonary nodules or masses are seen. Central airways are patent. 6 mm possible ground glass nodule of the left upper lobe on image 137. Hepatomegaly with hepatic steatosis. No acute upper abdominal abnormality. No acute fracture or destructive bone lesion. IMPRESSION: 1. No pulmonary emboli identified. 2. Cardiomegaly with interstitial pulmonary edema. 3. [id number] layering pleural effusions with dependent bibasilar consolidation suggestive of atelectasis. ACT 112: Negative or not required by law. The above report was generated using voice recognition software. It may contain grammatical, syntax or spelling errors. Electronically signed by: Philip Carrillo M.D. 02/14/2025 11:39 AM Code Status & VTE Plan VTE Prophylaxis Plan VTE Prophylaxis will be ordered: Yes Supervising Physician Co-Signing Physician Notes 64 year old F with PMH of non-insulin dependent DM 2, HTN, HLD, Breast CA (2017) s/p chemo/radiation with recent Tamoxifen wean, presenting with tachycardia for months, [place]EIN/dry cough/mild LE edema x 1 week. Patient denies fever/sore throat/chest pain/pain or burning with passing urine/nausea/vomiting/diarrhea/lightheadedness/dizziness. Labs and imaging reviewed, CBC and CMP fairly WNL, magnesium 1.5, will replace total of 3 g today. Troponin mildly elevated, will continue to trend. BNP elevated at 324. Lipase WNL. Pro-Alexys and TSH WNL. UA suggestive of UTI. Lyme screen negative. Chest imaging with small layering pleural effusion with dependent atelectasis. No PE and no pneumonia. Interstitial pulmonary edema noted. Likely acute CHF: Received Lasix 40 Mg IV while in ED, continue with 40 Mg IV Lasix daily. tsh wnl. Monitor replete electrolytes, total of 3 g magnesium today. ECHO. Cardiology consult, telemetry monitoring, [facility] metoprolol tartrate 12.5 mg bid for tachy Possible UTI: rocephin, f/u culture. On exam: Patient on room air, trace BLE edema, heart rate in 110s, no crackles on lung exam, abdomen WNL. Rest of the examination as above. Total time spent independently: 27 minutes. I have seen and examined the patient and have discussed the case with the provider above. I agree with the assessment and plan as stated.
[2025-02-14] MEDS ORDERED: ACETAMINOPHEN 325 MG TAB PO PRN (14:50)
[2025-02-14] MEDS ORDERED: GLUCOSE 10 TAB/TUBE PO PRN (14:50)
[2025-02-14] MEDS ORDERED: PHARMACY GLYCEMIC MGMT CONSULT PRN (14:50)
[2025-02-14] MEDS ORDERED: ALUMINUM/MAGNESIUM SUSP 30 ML UDC PO PRN (14:50)
[2025-02-14] MEDS ORDERED: GLUCOSE 40% GEL 15 GM TUBE PO PRN (14:50)
[2025-02-14] MEDS ORDERED: POLYETHYLENE (MIRALAX) 17 GM PACK PO PRN (14:50)
[2025-02-14] MEDS ORDERED: ONDANSETRON INJ 2 MG/ML 2 ML VIAL IV PRN (14:50)
[2025-02-14] MEDS ORDERED: ENOXAPARIN 0.5 MG/KG SQ SCH (14:50)
[2025-02-14] MEDS ORDERED: DEXTROSE 50% 50 ML SYRINGE IV PRN (14:50)
[2025-02-14] MEDS ORDERED: GLUCAGON FOR INJ 1 MG VIAL SQ PRN (14:50)
[2025-02-14] MEDS ORDERED: CARBOHYDRATES FOR HYPOGLYCEMIA PO PRN (14:50)
[2025-02-14] MEDS: MAGNESIUM SULFATE / D5W 1 GM/100 ML BAG IV SCH (15:42)
--- NOTE | 2025-02-14 15:47 | Cardiology Consultation ---
Date of Consultation February 14, 2025 Assessment & Plan (1) Heart failure, systolic, with acute decompensation: (2) Systolic congestive heart failure with reduced left ventricular function, NYHA class 3: (3) Mitral regurgitation: (4) HTN (hypertension): (5) Dyslipidemia, goal LDL below 70: Plan Very pleasant 64-year-old female referred to [facility] due to abnormal EKG and symptoms including shortness of breath, fluid retention, dry nocturnal cough. Imaging of the chest revealed cardiomegaly with interstitial pulmonary edema, small to moderate layering pleural effusions. Resting echocardiography reveals new onset systolic heart failure with moderate reduction in LV systolic function, EF 25 to 30%, moderate (2-3+) mitral regurgitation. NYHA Class III on presentation. QRS duration narrow. Volume status: Hypervolemic. Recommendations: * Agree with IV furosemide at 40 mg/day * Monitor renal function and electrolytes daily * Discontinue pioglitazone (Actos) - can cause or exacerbate congestive heart failure. * Discontinue lisinopril (takes in the PM, last on 02/13), initiating low dose Entresto in the PM of 02/15 * Change metoprolol tartrate to GDMT metoprolol succinate, 12.5 mg BID to start * Possible future addition of a mineralocorticoid receptor antagonist (low dose spironolactone) and an SGLT2 inhibitor Empagliflozin (Jardiance) discussed. * Continue atorvastatin * Evaluate for underlying causes * NPO after midnight * Outpatient genetic testing Supervising Physician Co-Signing Physician Notes Patient seen and personally examined. Full assessment and plan as outlined by advanced provider above. Care and management personally discussed and recommendations as above endorsed. 64-year-old female with newly observed signs and symptoms of congestive heart failure and diffuse cardiomyopathy. Initial plans as outlined Responding to IV diuretics already administered History of Present Illness Reason for Consultation: Tachycardia; dyspnea; R/O CHF Requesting Physician: [facility] Hospitalist Service, Abigail ESTEVEZ Attending Physician: [facility] Hospitalist Service, Dr. Yazmin Mckeon MD History of Present Illness Kayley Schmitt is a very pleasant 64-year-old female who, for the past week or so has been experiencing increased shortness of breath, dyspnea on exertion, fluid retention, and dry cough at night. Patient has slept in a recliner for the last 6 weeks due to a hip injury/nerve impingement treated by chiropractic medicine. Today, patient presented to Family Practice for a regular diabetic follow-up noting the above symptoms. EKG obtained, revealing sinus tachycardia with a ventricular rate of 107 bpm with inferolateral T wave abnormality. Due to symptoms and EKG findings, patient was referred to the ER for further evaluation and treatment. Patient notes history of tachycardia dating back the last 2 years. Patient notes being referred for resting echocardiography in early November. Study was technically limited, LVEF 50% at that time. EKG on presentation to the ER revealed sinus tachycardia with a ventricular rate of 128 bpm with voltage criteria for LVH, STT wave abnormality. High- sensitivity elevated as follows: 21.7 -> 26.9 pg/mL. Chest x-ray was interpreted by the radiologist as revealing atelectasis versus early pneumonia in the lung bases. Chest CTA negative for pulmonary emboli, identified cardiomegaly with interstitial pulmonary edema with small to moderate layering pleural effusions with dependent bibasilar consolidation suggestive of atelectasis. Minimal coronary artery calcifications observed. No thoracic aortic aneurysm identified. In the ER patient received 40 mg of IV Lasix with good diuresis per patient report. Magnesium supplemented IV. I's and O's not accurately recorded. Up into 1 week ago patient without cardiopulmonary symptoms. Patient denies prior cardiac history. She specifically denies history of CAD, TX, CHF, arrhythmia, heart murmur, rheumatic fever, or scarlet fever. Past Medical and Surgical History Hypertension Dyslipidemia Type 2 diabetes mellitus with retinopathy Breast cancer diagnosed in 2016, left-sided, status post partial mastectomy, chemotherapy (Taxotere and cyclophosphamide last in October 2017), discontinuation of tamoxifen October 2024 GERD Depression and anxiety Cholecystectomy Partial hysterectomy Family History: Mother is alive at 85, with CHF. Father had CAD, status post TX and PCI, esophageal cancer, passing in his late 70s. 1 brother without cardiac issues. Social History: Never smoker. No smokeless tobacco. No alcohol. No illegal drug use. 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 Single. No children. Allergies Allergy/AdvReac Type Severity Reaction Status Date / Time codeine AdvReac Mild NAUSEA/VOMI Verified 02/14/25 12:47 TING Home Medications Medication Instructions Recorded Confirmed Type omeprazole 20 mg capsule,delayed 20 mg PO QAM #0 tabs 07/17/16 02/14/25 History release lisinopril 10 mg tablet 10 mg PO HS 04/13/19 02/14/25 History venlafaxine 150 mg tablet,extended 150 mg PO HS 04/13/19 02/14/25 History release 24 hr atorvastatin 20 mg tablet 20 mg PO HS 03/02/20 02/14/25 History metformin 500 mg tablet,extended 1,500 mg PO QAM 02/14/25 02/14/25 History release 24 hr pioglitazone 15 mg tablet 15 mg PO QAM 02/14/25 02/14/25 History Patient History Medical History Anxiety and depression History of colon polyps Osteoarthritis Hyperlipidemia HTN (hypertension), benign Pre-diabetes History of breast cancer left--diagnosed 2016--chemo/radiation/sx Surgical History History of anesthesia reaction EGD 04/22/19 [facility] - GAG/COUGH, LOW O2 SAT DURING PROCEDURE. PROCEDURE TERMINATED. History of carpal tunnel surgery of right wrist History of arthroscopy of right knee History of colonoscopy History of esophagogastroduodenoscopy (EGD) History of left breast biopsy malignant History of lumpectomy of left breast History of wisdom tooth extraction Family History Father Family history of esophageal cancer Other No family history of adverse response to anesthesia Social History Smoking Status: Never smoker Second Hand Exposure: No; Do You Dip or Chew Tobacco: No; Hx Alcohol Use: Yes Alcohol type: beer Hx Substance Use: No Preferred Language: Irish Communication Ability: Effective Manager Lvn Required: No Beliefs That Will Affect Care: None Current Living Situation: Alone Other Information That Helps Us Care for You: No Feels Safe at Home: Yes Safety Concerns: Feels Safe At This Time Assistive Devices: None Review of Systems Review of Systems: Complete Review of Systems: Constitutional: No fevers, chills, or night sweats. HEENT: No history of cataracts, macular degeneration, or glaucoma. No history of amaurosis fugax. Pulmonary: No history of asthma, emphysema, or COPD. Prior testing for sleep apnea negative per patient report. No history of PE. Cardiac: Tachycardic over the past two years. No other cardiac history. GI/Abd: No dysphagia. No GERD. No melana or hematochezia. No kidney problems. No liver problems. No history of pancreatic issues. Vascular: No history of carotid artery disease, AAA, or lower extremity claudication/PAD. Hematologic: No coagulation disorder, anemia, or abnormal bleeding. Musculoskeletal: Negative. Skin: No rash. Neurologic: No history of TIA/CVA, or seizure disorder. Female : See above. Endocrine: Type II diabetes mellitus. No thyroid issues. Complete Review of Systems is as stated above, negative, or noncontributory Physical Exam Physical Exam: General: A&Ox3. NAD. HENT: Normocephalic. Atraumatic. Eyes: PER. Conjunctiva pink, sclera clear. Neck: JVD. No carotid bruits. Heart: Distant heart sounds. Regular at 110 bpm. No murmur appreciated. Lungs: Diminished at the bases. No rales or wheezing appreciated. Abdomen: +BS. Soft. Nontender. No masses or organomegaly. Extremities: Trivial edema. Very mild stasis changes. No clubbing. No cyanosis. Limited neurological examination is without focal deficits. Pulses: radial=2/4, posterior tibial=1/4. Results & Data Vital Signs (Past 12 Hours) Vital Signs Temp Pulse Pulse Resp BP BP Pulse Ox 02/14/25 14:59 02/14/25 14:51 36.5 C 107 H 20 138/84 98 02/14/25 13:56 96 H 115/81 02/14/25 13:27 117 H 02/14/25 13:25 127 H 18 142/88 H 97 02/14/25 13:24 127 H 142/88 H 02/14/25 12:00 117 H 18 134/102 H 98 02/14/25 11:09 109 H 02/14/25 11:00 144/90 H 02/14/25 10:57 110 H 20 98 02/14/25 10:54 108 H 19 98 02/14/25 10:42 117 H 19 98 02/14/25 10:39 115 H 24 98 02/14/25 10:30 146/90 H 02/14/25 10:12 108 H 19 02/14/25 10:06 108 H 21 96 06/30/25 10:00 135/80 02/14/25 10:00 135/80 02/14/25 09:54 112 H 17 97 02/14/25 09:53 129/78 02/14/25 09:53 129/78 02/14/25 09:30 112 H 15 02/14/25 09:27 114 H 21 02/14/25 09:20 97 02/14/25 09:17 97 02/14/25 09:14 136/85 02/14/25 09:14 136/85 02/14/25 09:14 136/85 02/14/25 09:14 118 H 25 H 02/14/25 09:12 117 H 02/14/25 08:57 36.7 C 122 H 26 H 146/80 H 97 O2 Del Method 02/14/25 14:59 Room Air 02/14/25 14:51 Room Air 02/14/25 13:56 02/14/25 13:27 02/14/25 13:25 Room Air 02/14/25 13:24 02/14/25 12:00 Room Air 02/14/25 11:09 02/14/25 11:00 02/14/25 10:57 02/14/25 10:54 02/14/25 10:42 02/14/25 10:39 02/14/25 10:30 02/14/25 10:12 02/14/25 10:06 02/14/25 10:00 02/14/25 10:00 02/14/25 09:54 02/14/25 09:53 02/14/25 09:53 02/14/25 09:30 02/14/25 09:27 02/14/25 09:20 Room Air 02/14/25 09:17 Room Air 02/14/25 09:14 02/14/25 09:14 02/14/25 09:14 02/14/25 09:14 02/14/25 09:12 02/14/25 08:57 Room Air Laboratory Results Cardiac Enzymes 02/14/25 02/14/25 Range/Units 09:42 11:06 AST TNP 16 Troponin I High Sens 21.7 H 26.9 H (0-14) pg/ml B-Natriuretic Peptide 324 H (0-100) pg/ml Coagulation 02/14/25 Range/Units 09:42 PT 11.0 (9.0-12.0) Seconds APTT 26 (21-31) Seconds B-Natriuretic Peptide 324 H (0-100) pg/ml CBC 02/14/25 Range/Units 09:42 WBC 5.22 (4.8-10.8) K/ul RBC 4.13 L (4.20-5.40) M/uL Hgb 12.1 (12.0-16.0) g/dl Hct 36.4 L (37.0-47.0) % Plt Count 223 (130-400) K/uL Neut # (Auto) 3.52 (1.40-6.50) K/uL Lymph # (Auto) 1.04 L (1.20-3.40) K/uL [place] # (Auto) 0.50 (0.11-0.59) K/uL Eos # (Auto) 0.10 (0.00-0.50) K/uL Baso # (Auto) 0.04 (0.00-0.20) K/uL Comprehensive Metabolic Panel 02/14/25 02/14/25 Range/Units 09:42 11:06 Sodium 138 (136-145) mmol/L Potassium TNP 4.1 Chloride 106 (98-107) mmol/L Carbon Dioxide 23 (21-32) mmol/L BUN 13 (6-23) mg/dl Creatinine 0.84 (0.6-1.2) mg/dl Glucose 151 H (70-99(Fasting)) mg/dl Calcium 8.9 (8.6-10.3) mg/dl AST TNP 16 ALT 12 (7-52) U/L Alkaline Phosphatase 49 (34-104) U/L Total Protein 6.6 (6.0-8.3) gm/dl Albumin 3.6 (3.4-5.0) gm/dl Intake and Output 02/14/25 02/14/25 02/14/25 06:59 14:59 22:59 Intake Total 150 / 150 Balance 150 / 150 Intake: IV 150 / 150 Magnesium Sulfate / D5w 1 gm In 100 / 100 100 ml @ 100 mls/hr IV NOW STA Rx#:[id number] cefTRIAXone SODIUM 2,000 mg In 50 / 50 50 ml @ 100 mls/hr IV NOW STA Rx#:[id number] Other: Weight 110.3 kg Weight Measurement Method Standing Scale Patient Weight 02/15/25 06:59 Weight 110.3 kg Diagnostic Findings EKG: Sinus tachycardia at 128 bpm. Voltage criteria for LVH. Nonspecific STT wave abnormality. QTc 443 ms. Telemetry: Sinus tachycardia with occasional PVCs February 14, 2025 TTE Interpretation Summary ([facility], Dr. Hays): The left ventricle is normal in size. There is mild concentric LVH. Moderate global hypokinesis of the left ventricle. Left ventricular ejection fraction 25 to 30%. Moderately dilated left atrium. Moderate 2-3+ mitral regurgitation.
[2025-02-14] MEDS: INSULIN ASPART PER UNIT CHARGE SC SCH (15:50)
[2025-02-14] MEDS: ENOXAPARIN INJ 60 MG/0.6 ML SYR SQ SCH (15:56)
[2025-02-14] MEDS: ATORVASTATIN 20 MG TAB PO SCH (20:08)
[2025-02-14] MEDS: VENLAFAXINE HCL XR 150 MG CAPXR PO SCH (20:08)
[2025-02-14] MEDS: METOPROLOL SUCC 25MG EXT REL TAB PO SCH (20:45)
[2025-02-14] MEDS ORDERED: METOPROLOL TARTRATE 25 MG TAB PO SCH (21:00)
[2025-02-15] MEDS: ADVANCED PROBIOTIC 625 MG CAPSULE PO SCH (07:44)
[2025-02-15] MEDS: FUROSEMIDE 40 MG/4 ML VIAL IV SCH (07:44)
[2025-02-15 09:18] LABS: Hematocrit (blood only) 41.1 % (37.0-47.0); Hemoglobin 13.5 g/dl (12.0-16.0); Mean Corpuscular Hemoglobin 29.2 pg (25.0-34.0); Mean Corpuscular Volume 89.0 fL (80.0-100.0); Platelet Count 283 K/uL (130-400); RDW Standard Deviation 44.0 fL (36.4-46.3); Red Blood Count 4.62 M/uL (4.20-5.40); White Blood Count 5.87 K/ul (4.8-10.8)
[2025-02-15 09:34] LABS: Hemoglobin A1C 7.4 % (4.5-5.6)
--- NOTE | 2025-02-15 09:35 | Cardiology Progress Note ---
Date of Service February 15, 2025 Assessment & Plan (1) Heart failure, systolic, with acute decompensation: (2) Systolic congestive heart failure with reduced left ventricular function, NYHA class 3: (3) Mitral regurgitation: (4) HTN (hypertension): (5) Dyslipidemia, goal LDL below 70: Plan 64-year-old female referred to [facility] on 02/14/2025 due to abnormal EKG as well as symptoms including shortness of breath, dry nocturnal cough, fluid retention. Imaging with cardiomegaly, interstitial pulmonary edema, small to moderate layering pleural effusions. Echocardiography with new onset systolic heart failure with moderate reduction in LV systolic function, EF 25 to 30%, moderate (2-3+) mitral regurgitation. NYHA Class III. QRS duration narrow. Volume status: Improving hypervolemia. Patient NPO Recommendations: * Continue IV furosemide through today, transitioning to oral for AM of 02/16 * Increase metoprolol succinate to 25 mg BID * Refer for diagnostic cardiac catheterization * Lisinopril discontinued this admission (last received in PM of 02/13), transitioning to low dose Entresto starting this PM * Future considerations: low dose spironolactone * Avoid SGLT2 inhibitor (had 5 UTI's in 6 months with past use of Jardiance) * Pioglitazone (Actos) discontinued this admission. * Continue atorvastatin Admission and Anticipated Discharge Date Admission Date: February 14, 2025 Supervising Physician Co-Signing Physician Notes Patient was seen and personally examined. Full assessment and plan as outlined by advanced provider above. Care and management personally endorsed Impression: Newly diagnosed cardiomyopathy with reduced ejection fraction and acute systolic heart failure. Clinically improving. Goal as outlined above achieved GDMT Will proceed with diagnostic coronary angiography today to exclude ischemic origin Procedure and risks explained in detail Subjective Patient seen and examined. Chart, medications, telemetry reviewed. Feeling better, with improvement in dyspnea, energy, and overall wellbeing I/O's not recorded, patient reporting good diuresis, clear urine. No chest pain, overt palpitations, PND, or peripheral edema. Review of Systems Review of Systems: See initial consultation. Otherwise negative or noncontributory. Physical Exam Physical Exam: General: A&Ox3. NAD. HENT: Normocephalic. Atraumatic. Eyes: PER. Conjunctiva pink, sclera clear. Neck: No JVD. No carotid bruits. Heart: Distant heart sounds. Regular at 100 bpm. No murmur appreciated. Lungs: Diminished at the bases. No rales or wheezing appreciated. Abdomen: +BS. Soft. Nontender. No masses or organomegaly. Extremities: No edema. Very mild stasis changes. No clubbing. No cyanosis. Limited neurological examination is without focal deficits. Pulses: radial=2/4, posterior tibial=1/4. Results & Data Vital Signs (Past 12 Hours) Vital Signs Temp Pulse Pulse Resp BP Pulse Ox O2 Del Method 02/15/25 08:18 36.5 C 97 H 18 130/83 95 Room Air 02/15/25 08:00 Room Air 02/15/25 07:40 36.7 C 104 H 18 130/75 99 Room Air 02/15/25 04:46 37.4 C 70 16 142/72 H 97 Nasal Cannula 02/15/25 04:15 36.7 C 103 H 16 111/73 97 Room Air 02/14/25 23:26 36.7 C 91 H 18 98/62 L 97 Room Air 02/14/25 22:11 99 H O2 Flow Rate 02/15/25 08:18 02/15/25 08:00 02/15/25 07:40 02/15/25 04:46 2 02/15/25 04:15 02/14/25 23:26 02/14/25 22:11 Laboratory Results Cardiac Enzymes 02/14/25 02/14/25 02/14/25 Range/Units 09:42 11:06 17:35 AST TNP 16 Troponin I High Sens 21.7 H 26.9 H 29.3 H (0-14) pg/ml B-Natriuretic Peptide 324 H (0-100) pg/ml 02/14/25 Range/Units 23:11 AST Troponin I High Sens 26.1 H (0-14) pg/ml B-Natriuretic Peptide (0-100) pg/ml Coagulation 02/14/25 Range/Units 09:42 PT 11.0 (9.0-12.0) Seconds APTT 26 (21-31) Seconds B-Natriuretic Peptide 324 H (0-100) pg/ml CBC 02/14/25 02/15/25 Range/Units 09:42 08:54 WBC 5.22 5.87 (4.8-10.8) K/ul RBC 4.13 L 4.62 (4.20-5.40) M/uL Hgb 12.1 13.5 (12.0-16.0) g/dl Hct 36.4 L 41.1 (37.0-47.0) % Plt Count 223 283 (130-400) K/uL Neut # (Auto) 3.52 (1.40-6.50) K/uL Lymph # (Auto) 1.04 L (1.20-3.40) K/uL [place] # (Auto) 0.50 (0.11-0.59) K/uL Eos # (Auto) 0.10 (0.00-0.50) K/uL Baso # (Auto) 0.04 (0.00-0.20) K/uL Comprehensive Metabolic Panel 02/14/25 02/14/25 02/15/25 Range/Units 09:42 11:06 08:54 Sodium 138 138 (136-145) mmol/L Potassium TNP 4.1 4.4 Chloride 106 102 (98-107) mmol/L Carbon Dioxide 23 27 (21-32) mmol/L BUN 13 14 (6-23) mg/dl Creatinine 0.84 1.01 (0.6-1.2) mg/dl Glucose 151 H 168 H (70-99(Fasting)) mg/dl Calcium 8.9 9.4 (8.6-10.3) mg/dl AST TNP 16 ALT 12 (7-52) U/L Alkaline Phosphatase 49 (34-104) U/L Total Protein 6.6 (6.0-8.3) gm/dl Albumin 3.6 (3.4-5.0) gm/dl Intake and Output 02/14/25 02/15/25 02/15/25 22:59 06:59 14:59 Intake Total 440 / 590 Balance 440 / 590 Intake: IV 200 / 350 Magnesium Sulfate / D5w 1 gm In 200 / 200 100 ml @ 50 mls/hr IV Q2H [facility] Rx#:[id number] Oral 240 / 240 Other: Other Intake Source NPO Weight 109.4 kg Weight Measurement Method Standing Scale Diagnostic Findings EKG: Sinus tachycardia at 104 bpm. Voltage criteria for LVH. Lateral STT wave abnormality. Telemetry: Sinus/sinus tachycardia with occasional PVC. Heart rate currently 90 bpm. PG Care Time/CCT Total # of Minutes Spent Total Time Spent with Patient: Total time spent is greater than 50% in coordination of care (as documented) at patient's floor/unit and/or counseling patient: [place] [address] SUB INP/OBS CARE 3/50MIN Patient Type Established Diagnoses Heart failure, systolic, with acute decompensation I50.23 Systolic congestive heart failure with reduced left ventricular function, NYHA class 3 I50.20 Mitral regurgitation I34.0 HTN (hypertension) I10 Dyslipidemia, goal LDL below 70 E78.5
[2025-02-15 09:41] LABS: Anion Gap 9.0 (3-11); Blood Urea Nitrogen 14.0 mg/dl (6-23); Calcium 9.4 mg/dl (8.6-10.3); Carbon Dioxide 27.0 mmol/L (21-32); Chloride 102.0 mmol/L (98-107); Creatinine Clr Calc Pharmacy 71.1 ml/min; Glucose 168.0 mg/dl (70-99(Fasting)); Magnesium 2.0 mg/dl (1.7-2.4); Potassium 4.4 mmol/L (3.5-5.1); Sodium 138.0 mmol/L (136-145)
--- NOTE | 2025-02-15 10:35 | Pre Anesthesia Assessment ---
Date of Service February 15, 2025 Pre Sedation Assessment Vital Signs Temp Pulse Pulse Pulse Resp BP BP 02/15/25 10:09 101 H 18 123/82 02/15/25 08:18 97.7 F 97 H 18 130/83 02/15/25 08:00 02/15/25 07:40 98.1 F 104 H 18 130/75 02/15/25 07:00 94 H 02/15/25 04:46 99.3 F 70 16 142/72 H 02/15/25 04:15 98.1 F 103 H 16 111/73 02/14/25 23:26 98.1 F 91 H 18 98/62 L 02/14/25 22:11 99 H 02/14/25 19:00 97.9 F 108 H 18 113/68 02/14/25 15:16 107 H 02/14/25 14:59 02/14/25 14:51 97.7 F 107 H 20 138/84 02/14/25 13:56 96 H 115/81 02/14/25 13:27 117 H 02/14/25 13:25 127 H 18 142/88 H 02/14/25 13:24 127 H 142/88 H 02/14/25 12:00 117 H 18 134/102 H 02/14/25 11:09 109 H 02/14/25 11:00 144/90 H 02/14/25 10:57 110 H 20 02/14/25 10:54 108 H 19 02/14/25 10:42 117 H 19 02/14/25 10:39 115 H 24 Pulse Ox O2 Del Method O2 Flow Rate 02/15/25 10:09 96 Room Air 02/15/25 08:18 95 Room Air 02/15/25 08:00 Room Air 02/15/25 07:40 99 Room Air 02/15/25 07:00 02/15/25 04:46 97 Nasal Cannula 2 02/15/25 04:15 97 Room Air 02/14/25 23:26 97 Room Air 02/14/25 22:11 02/14/25 19:00 96 Room Air 02/14/25 15:16 02/14/25 14:59 Room Air 02/14/25 14:51 98 Room Air 02/14/25 13:56 02/14/25 13:27 02/14/25 13:25 97 Room Air 02/14/25 13:24 02/14/25 12:00 98 Room Air 02/14/25 11:09 02/14/25 11:00 02/14/25 10:57 98 02/14/25 10:54 98 02/14/25 10:42 98 02/14/25 10:39 98 Cardiovascular + regular rate Respiratory + respiratory effort normal Pre-Sedation Airway Assessment Smoking Status: Never smoker Hx Sleep Apnea: No Hx Difficult Intubation: No Short, Thick Neck: No Thyromental Distance: > or= 3.5 Finger Breadths Oral Cavity: + WNL Mallampati Class: III ASA: ASA3 Procedure Planning Contraindications for Sedation: none Current Medications Reviewed: Yes Notes The planned sedation has been discussed with the patient. Informed Consent was obtained. I have identified the patient, determined the appropriateness of sedation and have assessed the patient immediately prior to the procedure. All medicine(s) and interventions are by my order.
--- NOTE | 2025-02-15 10:41 | Electrocardiogram Report ---
Test Reason : Blood Pressure : */* mmHG Vent. Rate : 128 BPM Atrial Rate : 128 BPM P-R Int : 140 ms QRS Dur : 82 ms QT Int : 304 ms P-R-T Axes : 47 -24 112 degrees QTcB Int : 443 ms Sinus tachycardia Moderate voltage criteria for LVH, may be normal variant ( R in aVL ) Nonspecific ST and T wave abnormality Abnormal ECG When compared with ECG of 22-Apr-2018 17:09, No significant change was found Confirmed by Gaurav Fulton ([id number]) on 02/15/2025 10:41:02 AM Referred By: Tariq Dong Confirmed By: Gaurav Fulton
[2025-02-15] MEDS: ASPIRIN 325 MG ECTAB PO ONE (11:09)
[2025-02-15] MEDS: MIDAZOLAM HCL 1 MG/ML 2ML VIAL ONE (11:09)
[2025-02-15] MEDS: HEPARIN (PORCINE) 1000 UNIT/ML 10 ML (CATH LAB USE ONLY) ONE (11:09)
--- NOTE | 2025-02-15 11:09 | Post Anesthesia Assessment ---
Date of Service February 15, 2025 Post Sedation Assessment Vital Signs Temp Pulse Pulse Pulse Resp BP BP 02/15/25 10:09 101 H 18 123/82 02/15/25 08:18 97.7 F 97 H 18 130/83 02/15/25 08:00 02/15/25 07:40 98.1 F 104 H 18 130/75 02/15/25 07:00 94 H 02/15/25 04:46 99.3 F 70 16 142/72 H 02/15/25 04:15 98.1 F 103 H 16 111/73 02/14/25 23:26 98.1 F 91 H 18 98/62 L 02/14/25 22:11 99 H 02/14/25 19:00 97.9 F 108 H 18 113/68 02/14/25 15:16 107 H 02/14/25 14:59 02/14/25 14:51 97.7 F 107 H 20 138/84 02/14/25 13:56 96 H 115/81 02/14/25 13:27 117 H 02/14/25 13:25 127 H 18 142/88 H 02/14/25 13:24 127 H 142/88 H 02/14/25 12:00 117 H 18 134/102 H 02/14/25 11:09 109 H Pulse Ox O2 Del Method O2 Flow Rate 02/15/25 10:09 96 Room Air 02/15/25 08:18 95 Room Air 02/15/25 08:00 Room Air 02/15/25 07:40 99 Room Air 02/15/25 07:00 02/15/25 04:46 97 Nasal Cannula 2 02/15/25 04:15 97 Room Air 02/14/25 23:26 97 Room Air 02/14/25 22:11 02/14/25 19:00 96 Room Air 02/14/25 15:16 02/14/25 14:59 Room Air 02/14/25 14:51 98 Room Air 02/14/25 13:56 02/14/25 13:27 02/14/25 13:25 97 Room Air 02/14/25 13:24 02/14/25 12:00 98 Room Air 02/14/25 11:09 Recovery Score Activity: Moves 4 extremities Respiration: Deep Breath/Cough Circulation: +/-20% PreAnes Value Consciousness: Fully Awake Oxygen Saturation: O2 needed for >90% Discharge Sedation Level of Care: Fast Track Phase II Post Sedation Plan tiss
[2025-02-15] MEDS: NITROGLYCERIN/D5W 100MCG/ML 20ML SYR ONE (11:10)
[2025-02-15] MEDS: OPTIRAY 350 ONE (11:10)
[2025-02-15] MEDS: niCARdipine 2,000 MCG/20 ML SYR ONE (11:10)
--- NOTE | 2025-02-15 11:12 | Cardiac Catheterization ---
[facility] Data: Telecom Engineer Cardiac Status Clinical evaluation leading to the procedure CAD Presenation: Sx unlikely to be ischemic Diagnostic Physicians Name: Jasmeet George MD Closure Device Recommendations: Medical Therapy and/or Counseling Cardiac Cath Procedure Full Procedure Date February 15, 2025 Pre-Procedure Diagnosis Pre-Procedure Diagnosis: Cardiomyopathy AUC Score AUC Score: 7 Post-Procedure Diagnosis Post-Procedure Diagnosis: Moderate CAD and Elevated Intracardiac Pressures Procedure(s) Performed Procedure(s) Performed: Coronary Angiography and Left Heart Cath Sleep Technologist Jasmeet George MD Stopper Maker Helper(s) Jennifer Estimated Blood Loss Estimated Blood Loss: 5 Medication(s) Medication(s): Fentanyl, Heparin, Lidocaine 1%, Nicardipine, Nitroglycerin and Versed Summary of Findings Indication: Cardiomyopathy, new HFrEF Access: 6 Fr slender right radial artery Catheters: [place] Findings: LM -normal caliber, short, no significant disease LAD -medium caliber, proximal/mid segment without significant disease. Gives off large trifurcating D1 without significant disease. Small D2 without disease. Distal LAD is small with 60 to 70% disease prior to tapering at apex. Circumflex -small to medium caliber, 30% ostial stenosis. Small OM/PLB without disease. RCA -dominant, medium caliber, 30% mid RCA, distal segment luminal irregularities. RPDA, right posterior lateral branch without significant disease. LVEDP -1720 Arterial Closure: TR band Summary: 1. Moderate coronary artery disease - 60-70% small distal LAD 30% ostial circumflex 30% mid RCA 2. Elevated intracardiac filling pressure Recommendations: Continued GDMT for nonischemic cardiomyopathy and diuresis per Dr. Hays Medical management of residual CAD (distal LAD too small for stenting). Hemodynamics Rest Ao:: 100/68/82 Final Ao: 108/67/87 LV: 114/17 Recommendations Recommendations: Medical Therapy and/or Counseling Radiation Exposure (mGy) 897 Contrast (mls) 30 Anesthesia Moderate [id number] Procedural Complication(s) None Disposition Telecom Engineer Holding/Recovery I attest to the content of the Intraoperative Record and any orders documented therein. Any exceptions are noted below. [facility] Card Cath Procedure Codes Cardiac Catheterization Procedure 1: Cardiovascular Cath Procedures: 32160 Coronaries and LHC (+/-LV) Moderate Sedation Procedure 1: Sedation/Anesthesia: 33237 Mod Sedation by the same physician;Init15 Min Child Age 5 & Up PG Care Time/CCT Total # of Minutes Spent Total Time Spent with Patient: Total time spent is greater than 50% in coordination of care (as documented) at patient's floor/unit and/or counseling patient:
--- NOTE | 2025-02-15 13:16 | Pharmacy Report ---
Pharmacy Glycemic Short Note 2 - Date of Service February 15, 2025 - Glycemic Short BSG Results (Last 24 hours): 02/14/25 02/14/25 02/14/25 15:46 16:52 20:29 Glucose POC Glucose 137 H 164 H 187 H 02/15/25 02/15/25 02/15/25 08:34 08:54 11:59 Glucose 168 H POC Glucose 192 H 144 H OUTPATIENT ANTIDIABETIC REGIMEN: * metformin 1500 mg po qam * pioglitazone 15 mg po daily ASSESSMENT: * 64 year old referred to hospital due to abnormal EKG, shortness of breath. Type 2 diabetic managed only on oral agents outpatient. 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 Fasting BSG 168 mg/dL - hold basal. Plan to utilize novolog weight based stress 2 dosing for now. Could consider adding basal if AM fasting remains elevated tomorrow. PLAN FOR INPATIENT GLYCEMIC CONTROL: * Hold outpatient oral diabetes medications * Basal insulin * Lantus - hold * Bolus insulin * NovoLog per scale ACHS or Q6hrs while NPO * Goal Range: Low 110 mg/dL - High 140 mg/dL * Correction Factor: 20 mg/dL/unit * Nutritional / Prandial insulin per carb ratio of 1 unit per 7 grams CHO consumed
[2025-02-15] MEDS: cefTRIAXone SODIUM 2,000 MG/50 ML BAG IV SCH (14:07)
--- NOTE | 2025-02-15 15:06 | Electrocardiogram Report ---
Test Reason : Blood Pressure : */* mmHG Vent. Rate : 104 BPM Atrial Rate : 104 BPM P-R Int : 156 ms QRS Dur : 84 ms QT Int : 394 ms P-R-T Axes : 50 -17 156 degrees QTcB Int : 518 ms Sinus tachycardia Left ventricular hypertrophy with repolarization abnormality Abnormal ECG When compared with ECG of 14-Feb-2025 09:05, (unconfirmed) No significant change was found Confirmed by Gaurav Fulton ([id number]) on 02/15/2025 3:06:11 PM Referred By: Tariq Dong Confirmed By: Gaurav Fulton
--- NOTE | 2025-02-15 15:15 | Hospitalist Progress Note ---
Date of Service February 15, 2025 Assessment & Plan (1) Acute on chronic systolic congestive heart failure: (2) Nonischemic cardiomyopathy: (3) HTN (hypertension): (4) Mitral regurgitation: (5) Diabetes mellitus, type 2: Plan Patient 64-year-old female who presented with tachycardia due to decompensated systolic congestive heart failure. Has responded well to diuresis. Cardiac catheterization shows nonocclusive mild to moderate coronary disease. Continue goal-directed medical therapy for systolic heart failure Patient did not tolerate Jardiance in the past due to recurrent UTIs. Will not be able to include this as part of her GDMT. Allowing lisinopril to washout and starting Entresto Titrating metoprolol succinate per cardiology's recommendations Anticipate transitioning to oral diuretics tomorrow with plan discharge tomorrow Follow electrolytes and laboratory studies Admission and Anticipated Discharge Date Admission Date: February 14, 2025 Subjective Patient was seen this morning. She states that she feels good. No real shortness of breath. No chest pain. Initially she was hesitant to consider diagnostic cardiac catheterization with his hospitalization. However subsequently she changed her mind after meeting with cardiology and agreed to pursue diagnostic cardiac cath. Physical Exam Physical Exam: Constitutional: Alert, nontoxic, no acute distress HEENT: Mucous membranes moist. Lungs: Decreased breath sounds, few faint crackles at bases CV: S1-S2, regular Abdomen: Soft, nontender, nondistended Extremities: No significant edema Neuro: No focal deficits Psych: Cooperative, normal mood Results & Data Results & Data Vital Signs (Past 12 Hours) Vital Signs Temp Pulse Pulse Resp BP Pulse Ox O2 Del Method 02/15/25 12:31 98 H 02/15/25 11:50 36.6 C 94 H 16 131/78 93 Room Air 02/15/25 11:30 106 H 18 145/100 H 95 Room Air 02/15/25 11:15 104 H 18 172/66 H 95 Room Air 02/15/25 10:09 101 H 18 123/82 96 Room Air 02/15/25 08:18 36.5 C 97 H 18 130/83 95 Room Air 02/15/25 08:00 Room Air 02/15/25 07:40 36.7 C 104 H 18 130/75 99 Room Air 02/15/25 07:00 94 H 02/15/25 04:46 37.4 C 70 16 142/72 H 97 Nasal Cannula 02/15/25 04:15 36.7 C 103 H 16 111/73 97 Room Air O2 Flow Rate 02/15/25 12:31 02/15/25 11:50 02/15/25 11:30 02/15/25 11:15 02/15/25 10:09 02/15/25 08:18 02/15/25 08:00 02/15/25 07:40 02/15/25 07:00 02/15/25 04:46 2 02/15/25 04:15 Diagnostic Findings Reviewed imaging, laboratory and diagnostic studies. Pertinent findings as below. CBC within normal ranges Electrolytes within normal ranges Creatinine 1.01 Hemoglobin A1c 7.4% Troponins reviewed Echocardiogram shows ejection fraction 25 to 30% with global hypokinesis Cardiac catheterization shows moderate three-vessel coronary artery disease
[2025-02-15 16:00] VITALS: RESP 18
[2025-02-15] MEDS: METOPROLOL SUCC 25MG EXT REL TAB PO SCH (21:14)
[2025-02-15] MEDS: VALSARTAN/SACUBITRIL 26/24MG TAB PO SCH (21:42)
[2025-02-16 06:49] LABS: Hematocrit (blood only) 40.4 % (37.0-47.0); Hemoglobin 12.6 g/dl (12.0-16.0); Mean Corpuscular Hemoglobin 29.8 pg (25.0-34.0); Mean Corpuscular Volume 95.5 fL (80.0-100.0); Platelet Count 205 K/uL (130-400); RDW Standard Deviation 46.2 fL (36.4-46.3); Red Blood Count 4.23 M/uL (4.20-5.40); White Blood Count 5.01 K/ul (4.8-10.8)
[2025-02-16 07:05] LABS: Anion Gap 9.0 (3-11); Calcium 8.5 mg/dl (8.6-10.3); Carbon Dioxide 24.0 mmol/L (21-32); Chloride 103.0 mmol/L (98-107); Magnesium 1.8 mg/dl (1.7-2.4); Potassium 4.1 mmol/L (3.5-5.1); Sodium 136.0 mmol/L (136-145)
[2025-02-16 07:11] LABS: Blood Urea Nitrogen 18.0 mg/dl (6-23); Creatinine Clr Calc Pharmacy 76.8 ml/min; Glucose 155.0 mg/dl (70-99(Fasting))
[2025-02-16] MEDS: ENOXAPARIN INJ 40 MG/0.4 ML SYR SQ SCH (08:52)
[2025-02-16] MEDS: VALSARTAN/SACUBITRIL 26/24MG TAB PO SCH (08:54)
[2025-02-16] MEDS: SULFAMETHOXAZOLE/TRIMETHOPRIM DS 800/160MG TAB PO SCH (08:56)
[2025-02-16] MEDS ORDERED: CIPROFLOXACIN 500 MG TAB PO SCH (09:00)
[2025-02-16] MEDS: FUROSEMIDE 40 MG TAB PO SCH (09:39)
--- NOTE | 2025-02-16 09:44 | Cardiology Progress Note ---
Date of Service February 16, 2025 Assessment & Plan (1) Heart failure, systolic, with acute decompensation: (2) Systolic congestive heart failure with reduced left ventricular function, NYHA class 3: (3) Mitral regurgitation: (4) HTN (hypertension): (5) Dyslipidemia, goal LDL below 70: Plan 64-year-old female referred to [facility] on 02/14/2025 due to abnormal EKG as well as symptoms including shortness of breath, dry nocturnal cough, fluid retention. - Imaging with cardiomegaly, interstitial pulmonary edema, small to moderate layering pleural effusions. - Echocardiography with new onset systolic heart failure with moderate reduction in LV systolic function, EF 25 to 30%, moderate (2-3+) mitral regurgitation. - NYHA Class III. - QRS duration narrow. - Telemetry: Sinus tachycardia with occasional PVC's Asymptomatic UTI noted on presentation. Initially treated with ceftriaxone. Prescribed oral ciprofloxacin starting today. EKG with prolonged QTc Recommendations: * Discontinue Cipro. Avoid QTc prolonging medications if able. * Consider alternative to venlafaxine (Effexor) * OK for discharge, on the following cardiac medications: * Metoprolol succinate (Toprol XL) 25 mg twice a day * Sacubitril and Valsartan (Entresto) 24-26 mg twice a day * Furosemide 40 mg/day * Atorvastatin 20 mg/day * Aspirin 81 mg/day Pioglitazone (Actos) and Lisinopril discontinued this admission. Basic metabolic panel in one week Outpatient [facility] referral for titration of GDMT. - Metoprolol to be titrated initially. - Future addition of spironolactone discussed - Avoid SGLT2 inhibitors (had 5 UTI's in 6 months with past use of Jardiance) - Outpatient genetic testing Outpatient cardiology follow-up in 2-3 weeks Admission and Anticipated Discharge Date Admission Date: February 14, 2025 Supervising Physician Co-Signing Physician Notes Patient was seen and personally examined. Full assessment and plan as outlined by advanced provider above. Care and management personally endorsed Impression: Newly diagnosed cardiomyopathy with reduced ejection fraction and acute systolic heart failure. Clinically improving. No significant obstructive coronary disease on cardiac catheterization with mild distal vessel stenoses of the left anterior descending and moderate luminal regularities. Plan as outlined above with close clinical follow-up to be arranged ultimately goal further upward titration of GDMT Subjective Patient seen and examined. Chart, medications, telemetry reviewed. Status post February 15, 2025 cardiac catheterization revealing moderate coronary artery disease (60 to 70% small distal LAD stenosis (too small for stenting), 30% ostial circumflex stenosis, 30% mid RCA stenosis), elevated intracardiac filling pressure, LVEDP 17-20 No issues with right radial access site. Anxious for discharge. No chest pain. No palpitations. Breathing improved. Review of Systems Review of Systems: See initial consultation. Otherwise negative or noncontributory. Physical Exam Physical Exam: General: A&Ox3. NAD. HENT: Normocephalic. Atraumatic. Eyes: PER. Conjunctiva pink, sclera clear. Neck: No JVD. No carotid bruits. Heart: Regular 100 bpm. No murmur appreciated. Lungs: Clear. No wheeze. Abdomen: +BS. Soft. Nontender. No masses or organomegaly. Extremities: No edema. Very mild stasis changes. No clubbing. No cyanosis. Limited neurological examination is without focal deficits. Pulses: radial=2/4, posterior tibial=1/4. Results & Data Vital Signs (Past 12 Hours) Vital Signs Temp Pulse Resp BP Pulse Ox O2 Del Method 02/16/25 07:33 98 H 18 150/84 H 92 Room Air 02/16/25 02:45 36.7 C 93 H 18 124/65 94 Room Air 02/15/25 22:51 36.5 C 92 H 18 118/62 95 Room Air Laboratory Results Cardiac Enzymes 02/15/25 Range/Units 08:54 Troponin I High Sens 17.9 H D (0-14) pg/ml CBC 02/16/25 Range/Units 06:22 WBC 5.01 (4.8-10.8) K/ul RBC 4.23 (4.20-5.40) M/uL Hgb 12.6 (12.0-16.0) g/dl Hct 40.4 (37.0-47.0) % Plt Count 205 (130-400) K/uL Comprehensive Metabolic Panel 02/16/25 Range/Units 06:22 Sodium 136 (136-145) mmol/L Potassium 4.1 (3.5-5.1) mmol/L Chloride 103 (98-107) mmol/L Carbon Dioxide 24 (21-32) mmol/L BUN 18 (6-23) mg/dl Creatinine 0.94 (0.6-1.2) mg/dl Glucose 155 H (70-99(Fasting)) mg/dl Calcium 8.5 L (8.6-10.3) mg/dl Intake and Output 02/15/25 02/16/25 02/16/25 22:59 06:59 14:59 Intake Total 150 / 350 150 / 350 Balance 150 / 350 150 / 350 Intake: Oral 150 / 300 150 / 300 Other: # Unmeasured Voids 1 2 Weight 110.6 kg Weight Measurement Method Built in [facility] Diagnostic Findings February 15, 2025 Coronary Angiography ([facility], Dr. George): Access: 6 Fr slender right radial artery LM - normal caliber, short, no significant disease LAD - medium caliber, proximal/mid segment without significant disease. Gives off large trifurcating D1 without significant disease. Small D2 without disease. Distal LAD is small with 60 to 70% disease prior to tapering at apex. Circumflex - small to medium caliber, 30% ostial stenosis. Small OM/PLB without disease. RCA - dominant, medium caliber, 30% mid RCA, distal segment luminal irregularities. RPDA, right posterior lateral branch without significant disease. LVEDP -1720 Telemetry: Sinus/sinus tachycardia with heart rates predominantly in the 80s to 1 teens. Occasional PVCs. PG Care Time/CCT Total # of Minutes Spent Total Time Spent with Patient: Total time spent is greater than 50% in coordination of care (as documented) at patient's floor/unit and/or counseling patient: Coding Level of Care Code 09211 SUB INP/OBS CARE 3/50MIN Diagnoses Heart failure, systolic, with acute decompensation I50.23 Systolic congestive heart failure with reduced left ventricular function, NYHA class 3 I50.20 Mitral regurgitation I34.0 HTN (hypertension) I10 Dyslipidemia, goal LDL below 70 E78.5
[2025-02-16 11:39] VITALS: PULSE 100; TEMP 97.5; O2SAT 97
[2025-02-16 12:52] VITALS: BP 100/55
--- NOTE | 2025-02-16 14:51 | Discharge Summary ---
Discharge Summary Date of Service February 16, 2025 Principal Dx & Hospital Course #1 = Principal Diagnosis (1) Acute on chronic systolic congestive heart failure: (2) Nonischemic cardiomyopathy: (3) HTN (hypertension): (4) Mitral regurgitation: (5) Diabetes mellitus, type 2: Plan Patient 64-year-old female who presented with tachycardia due to decompensated systolic congestive heart failure. Has responded well to diuresis. Cardiac catheterization shows nonocclusive mild to moderate coronary disease. Continue goal-directed medical therapy for systolic heart failure Patient did not tolerate Jardiance in the past due to recurrent UTIs. Will not be able to include this as part of her GDMT. Allowing lisinopril to washout and starting Entresto Titrating metoprolol succinate per cardiology's recommendations Anticipate transitioning to oral diuretics tomorrow with plan discharge tomorrow Follow electrolytes and laboratory studies Notes For Next Care Provider Patient is a 64 year old F with a past medical history of non-insulin dependent DM 2, HTN, HLD, Breast CA (2017) s/p chemo/radiation with recent Tamoxifen wean, presenting with tachycardia, dyspnea, cough, congestion. Found to have new decompensated HFrEF (EF 25-30%) on medicine. Cardiology consulted, recomended heart catheterization which found diffuse moderate CAD with no intervention. GDMT started and titrated. On 02/16/2025 patient medically stable for discharge home per medicine and cardiology. To do: [ ] will possibly need ICD if no improvement in EF in 3-6 months [ ] titrate GDMT outpatient [ ] trend weight, appears base weight in 109-110 kg Medication Changes From Visit -see below Admission HPI Per Admitting Provider Patient is a 64 year old F with a past medical history of non-insulin dependent DM 2, HTN, HLD, Breast CA (2017) s/p chemo/radiation with recent Tamoxifen wean, presenting with tachycardia, dyspnea, cough, congestion. Chest congestion, dry cough mostly at night, dyspnea with mild exertion x 1 week. No treatment at home and symptoms remained the same. She went to her PCP this morning for routine f/u and sent here due to her symptoms with mild lower leg edema and a long-standing history of tachycardia seen outpatient. Denies fever, chills, weight loss, weakness, headache, cognitive changes, vision/hearing changes, chest pain, difficulty breathing, urinary concerns, N/V/D, joint swelling/pain, ambulation difficulty, skin rashes, lesions, bleeding, bruising. In the emergency department, patient had elevated blood pressure 140's / 90-110, HR 108-127. EKG showed sinus tachycardia with vent rate 128 bpm, QTc 44. No signs of sepsis. Chest Xray showed atelectasis versus early pneumonia in the lung bases. Chest CTA showed no pulmonary emboli identified; Cardiomegaly with interstitial pulmonary edema; [id number] layering pleural effusions with dependent bibasilar consolidation suggestive of atelectasis. Lasix 40mg x 1 given in ED for pleural effusions and LE edema. BNP elev at 324. Trop 21.7 initially and inc to 26.9 2 hours post 2 hours. Urine + UTI with nitrites, leuk esterase. NO urinary symptoms and infection found incidentally with workup. Ceftriaxone x 1 given for UTI. Urine culture pending. Echo ordered with routine Cardiology consult. KCL given x 1 in ED s/p diuretic treatment. Metoprolol Tartrate given x 1 in ED for tachycardia. As per external chart review, patient was seen by PCP today and on 10/22/24. As per visit record, patient has been tachycardic for several months outpatient. TSH normal. Echo was completed on 11/16 showing LVEF 50% with no evidence of significant valvular disease. No followup with Cardiology at that time. Labs unremarkable with no signs of anemia OP. History obtained primarily from the patient and via hospitalization record. External chart review obtained from [facility]. Discharge Exam Gen: A&O 3 NAD, large body habitus HEENT: NCAT, EOMI, not icteric. External ears normal. No rhinorrhea. Moist mucous membranes. Neck: Supple, full range of motion, no observable masses, No meningeal sign. Lungs: No Respiratory distress. CV: tachycardic, regular rhythm Abdomen: Soft, nondistended, No rebound tenderness. MSK: No joint swelling, no redness. No pitting edema bilaterally Skin: No rashes, petechiae, lesions. Normal color per patient. Neuro: Normal Gait, Grossly intact. Psych: Appropriate for situation. Updated Medication List Medication Instructions Recorded Confirmed Type omeprazole 20 mg capsule,delayed 20 mg PO QAM #0 tabs 07/17/02/14/25 History release venlafaxine 150 mg tablet,extended 150 mg PO HS 04/13/19 02/14/25 History release 24 hr atorvastatin 20 mg tablet 20 mg PO HS 03/02/20 02/14/25 History metformin 500 mg tablet,extended 1,500 mg PO QAM 02/14/25 02/14/25 History release 24 hr furosemide 40 mg tablet 40 mg PO QAM #60 tabs 02/16/25 Rx metoprolol succinate 25 mg 25 mg PO BID #60 tabs 02/16/25 Rx tablet,extended release 24 hr sacubitril 24 mg-valsartan 26 mg 1 tab PO BID #60 tabs 02/16/25 Rx tablet (Entresto) sulfamethoxazole 800 1 tab PO BID 3 days #6 tabs 02/16/25 Rx mg-trimethoprim 160 mg tablet (Bactrim DS) Hospital Stay Data Consultations 02/14/25 12:18 ED Decision to Admit Stat 02/14/25 13:19 Consult Cardiology Routine Procedures Performed Operation Date: 02/15/25 10:00 Actual Procedures p Cineradiography w/Routine Exam - Jasmeet George MD p Cath, Left with Cors and Vent - Jasmeet George MD Diagnostic Imagining Performed 02/14/25 10:37 CT angio chest PE protocol Stat 02/15/25 09:47 CL Cath Imgs for PACS use only Routine Pending Results Patient Have Any Pending Studies at Discharge: No Discharge Instructions Given to Patient (Per Discharging Provider) 1. Please follow heart healthy diet. 2. Please follow up with cardiology, PCP. 3. Weigh yourself daily. If up 3 pounds, take 2 doses of your furosemide and notify your home theater expert/PCP. 4. BMP in one week. Total Time Total Time Spent Total Time Spent (In Minutes): I spent a total of 35 minutes in direct patient care, including [id number] time with the patient and/or family, reviewing medical records, ordering and reviewing diagnostic tests, and coordinating care with other healthcare providers. This time includes: history taking, physical examination, medical decision making, counseling, ECG interpretation, imaging interpretation, lab interpretation, orders, and education, excluding time spent in the performance of separately billed services.
--- NOTE | 2025-02-16 15:05 | Electrocardiogram Report ---
Test Reason : Blood Pressure : */* mmHG Vent. Rate : 90 BPM Atrial Rate : 90 BPM P-R Int : 152 ms QRS Dur : 88 ms QT Int : 422 ms P-R-T Axes : 56 -26 138 degrees QTcB Int : 516 ms Normal sinus rhythm Left ventricular hypertrophy with repolarization abnormality Prolonged QT Abnormal ECG When compared with ECG of 15-Feb-2025 04:14, No significant change was found Confirmed by Gaurav Fulton ([id number]) on 02/16/2025 3:04:46 PM Referred By: Tariq Dong Confirmed By: Gaurav Fulton
== END 2025-02-16 13:59 | disposition home or self-care (01) | DRG 286 ==
LOC: ED 08:52 → 2W 12:56 → SUATTDRO 12:56 → 2W 13:53 → 2S 02-15 12:12